=== PATIENT | female | born 1940 | race Caucasian/White ===

== ENCOUNTER 2022-06-12 13:36 | Outpatient (CLI) | payer MEDICARE, OTHER, SELFPAY ==
--- NOTE | 2022-06-12 13:43 | XR_ITS ---
WS: [id number] SCREENING DEXA SCAN [employer] CLINICAL INFORMATION: AGE RELATED OSTEOPOROSIS W/O CURRENT PATHOLOGICAL FX COMPARISON: FINDINGS: The L1-L4 bone mineral density measures 0.943 g/cm2. This corresponds to a T score score of -2.0 and Z score of -0.3. Left femoral neck bone mineral density measures 0.904 g/cm2. This corresponds to a T score of -0.8 an d Z score of 1.1. Right femoral neck bone mineral density measures 0.855 g/cm2. This corresponds to a T score -1.2of an d Z score of 0.7. Mean femoral neck bone mineral density measures 0.880 g/cm2. This corresponds to a T score of -1.0 an d Z score of 0.9. XR/XR DEXA axial skeleton* [id number] IMPRESSION: Osteopenia lumbar spine. Osteopenia femoral necks at the lower end of the range . Patient's FRAX calculated 10 year probability for major osteoporotic fracture i s 16.2 % and osteoporotic hip fracture is 3.9%.
== END 2022-06-12 13:37 | disposition home or self-care (01) ==
LOC: RAD 13:41
PROVIDERS: Visit Provider Nurse Practitioner Family
DX: M81.0 Age-related osteoporosis without current pathological fracture (principal); M85.80 Other specified disorders of bone density and structure, unspecified site
CPT/HCPCS: 77080

== ENCOUNTER 2023-04-06 10:03 | Outpatient (CLI) | payer MEDICARE, OTHER, SELFPAY ==
--- NOTE | 2023-04-06 10:13 | USCV_ITS ---
Becky Knight Age: 83 Gender: F : 1940 Exam Date: 04/06/2023 10:28 Ordering Phys: Natasha Reyez NP Technologist: Sharron Garner Exam Location: [facility] [place] Indication: tia and essential htn BP: 160 / 80 HR: 88 Rhythm: Sinus Technical Quality: Adequate MEASUREMENTS (Male / Female) Normal Values 2D ECHO LV Diastolic Diameter PLAX 2.7 cm 4.2 - 5.9 / 3.9 - 5.3 cm LV Systolic Diameter PLAX 1.6 cm LV Chamber Size 3.6 cm IVS Diastolic Thickness 0.7 cm 0.6 - 1.0 / 0.6 - 0.9 cm IVS Systolic Thickness 0.8 cm LVPW Diastolic Thickness 1.1 cm 0.6 - 1.0 / 0.6 - 0.9 cm LVPW Systolic Thickness 1.0 cm RV Chamber Size 2.1 cm LVOT Diameter 2.0 cm LV Ejection Fraction 2D Teich 72.1 % LV Ejection Fraction MOD 2C 72.7 % LV Ejection Fraction 2C AL 73.1 % LA Diameter 2.6 cm LA Width 2.9 cm LA Height 4.5 cm RA Width 2.7 cm RA Height 3.8 cm Aorta at Sinotubular Diameter 1.9 cm IVC Diameter 2.1 cm M-MODE Aortic Annulus Diameter 3.2 cm LA Ao Ratio MM 0.9 MV E Point Septal Separation 1.2 cm DOPPLER AV Peak Velocity 81.0 cm/s LVOT Peak Velocity 87.0 cm/s AV Area Cont Eq vti 3.2 cm squared AV Area Cont Eq pk 3.5 cm squared MV Area PHT 4.2 cm squared Mitral E to A Ratio 0.7 MV E' Velocity 33.5 cm/s Mitral E to MV E' Ratio 14.0 Mitral E to LV E' Lateral Ratio 14.3 Mitral E to LV E' Septal Ratio 14.0 TR Peak Velocity 189.9 cm/s TR Peak Gradient 14.4 mmHg TR Mean Velocity 128.1 cm/s TR Mean Gradient 7.6 mmHg TR Velocity Time Integral 43.3 cm TV Peak E Velocity 48.0 cm/s Right Atrial Pressure 4.0 mmHg Pulmonary Artery Systolic Pressu 18.4 mmHg RV Acceleration Time 0.1 s RV Ejection Time 0.3 s RV AcT/ET 0.4 FINDINGS Left Ventricle Normal left ventricular size and systolic function, EF 66 %. Hypokinetic basal inferior wall segment. Mild left ventricular hypertrophy. Grade I/IV diastolic dysfunction (abnormal relaxation filling pattern), normal to mildly elevated filling pressures. Right Ventricle The right ventricle is normal in size and function. Right Atrium The right atrium is normal in size. Left Atrium Mildly increased left atrial size. Mitral Valve No gross abnormalities noted Aortic Valve Thickened aortic valve. Tricuspid Valve Trace tricuspid valve regurgitation. Estimated PA pressure, possibly within normal limits Pulmonic Valve Pulmonic valve not well visualized. Pericardium Normal pericardium without effusion. Aorta Normal ascending aorta dimension. IVC Normal inferior vena cava. CONCLUSIONS Normal left ventricular size and systolic function, EF 66 %. Hypokinetic basal inferior wall segment. Mild left ventricular hypertrophy. Grade I/IV diastolic dysfunction (abnormal relaxation filling pattern), normal to mildly elevated filling pressures. Thickened aortic valve. Mildly increased left atrial size. Estimated PA pressure, possibly within normal limits. No similar previous studies are available for comparison Dr Eveline Parmar MD [facility] (Electronically Signed) Final Date: 08 April 2023 09:31 S
--- NOTE | 2023-04-06 10:13 | USCV_ITS ---
Becky Knight Age: 83 Gender: F : 1940 Exam Date: 04/06/2023 10:54 Ordering Phys: Natasha Reyez NP Technologist: Sharron Garner [place] Location[place] [facility] [place] Indication: Recheck the cca for stenosis Risk Factors: Unknown Previous Vascular Surgery: None Right Brachial BP: / Left Brachial BP: / Right Left Velocity (cm/s) Spectral Plaque Velocity (cm/s) Spectral Plaque Syst/Diast Broadening Syst/Diast Broadening 70.60/ 16.50 Prox CCA 65.90 / 17.20 48.50/ 18.70 Mid CCA 62.80 / 16.50 62.10/ 13.20 Hetro Distal CCA 45.10 / 10.10 Hetro 93.30/ 17.10 Hetro Prox ICA 82.30 / 14.00 Hetro 59.10/ 15.50 Mid ICA 80.00 / 21.00 68.30/ 15.50 Distal ICA 50.00 / 17.90 127.50 ECA 45.10 1.92 ICA/CCA 1.31 Antegrade Vertebral Antegrade 36.30/ 11.20 cm/s 49.80/ 11.20 cm/s Bi Subclavian Tri 74.00 88.90 FINDINGS Mild to moderate dense plaques at the right bifurcation and proximal ICA. Moderate dense plaques at the left bifurcation and proximal ICA. Antegrade flow in the vertebral arteries bilaterally Normal Doppler flow velocities in the external carotid, subclavian and vertebral arteries bilaterally CONCLUSIONS Mild to moderate dense plaques at the right bifurcation and proximal ICA with a normal Doppler flow velocity, suggesting less than 50% stenosis. Moderate dense plaques at the left bifurcation and proximal ICA with a normal Doppler flow velocity, suggesting less than 50% stenosis Dr Eveline Parmar MD [facility] (Electronically Signed) Final Date: 08 April 2023 09:42 S
== END 2023-04-06 10:04 | disposition home or self-care (01) ==
PROVIDERS: Visit Provider Nurse Practitioner Family
DX: I25.10 Atherosclerotic heart disease of native coronary artery without angina pectoris (principal); I10 Essential (primary) hypertension; Z86.73 Personal history of transient ischemic attack (TIA), and cerebral infarction without residual deficits
CPT/HCPCS: 93306; 93880

== ENCOUNTER 2024-03-19 16:29 | Observation (INO) | payer MEDICARE, OTHER, SELFPAY ==
[2024-03-19] VITALS (18 sets, daily range): BP systolic 121–157; BP diastolic 68–101; PULSE 99–109; RESP 13–25; TEMP 36.4; O2SAT 89–100; BMI 28.3; BMI 25.3
--- NOTE | 2024-03-19 16:45 | ECG_ITS ---
[facility]19 Pat Name: Becky Knight Department: Room: Gender: Female [employer] T[employer]: : 1940 Requested By: Shannan Sim Order Number: [id number] Reading MD: CELIO ZENG Measurements Intervals [place] Rate: 101 P: 53 SD: 182 QRS: 33 QRSD: 88 T: 57 QT: 350 QTc: 454 Interpretive Statements SINUS TACHYCARDIA ABNORMAL RHYTHM ECG Compared to ECG 05/05/2019 16:54:08 Ventricular premature complex(es) no longer present Electronically Signed On 03-21-2024 21:02:16 CDT by CELIO ZENG [id number]
--- NOTE | 2024-03-19 16:52 | CTR_ITS ---
PROCEDURE INFORMATION: Exam: CT Cervical Spine Without Contrast Exam date and time: 03/19/2024 5:03 PM Age: 84 years old Clinical indication: Injury or trauma; Fall; Blunt trauma TECHNIQUE: Imaging protocol: Computed tomography of the cervical spine without contrast. Radiation optimization: All CT scans at this facility use at least one of these dose optimization techniques: automated exposure control; mA and/or kV adjustment per patient size (includes targeted exams where dose is matched to clinical indication); or iterative reconstruction. COMPARISON: CT head wo con* [id number] 03/19/2024 5:03 PM RADIATION DOSE METRICS: Total DLP (mGy-cm): 993.1 FINDINGS: Bones: Normal craniocervical and atlantoaxial alignment. The odontoid process is intact. There is no evidence of increased density within the spinal canal to suggest hemorrhage. There is straightening and mild reversal of the normal cervical lordosis without evidence of vertebral body listhesis or facet malalignment. This is likely positional, related to muscle spasm or underlying degenerative change. Scattered degenerative changes the vertebral bodies from C5 through C7 with disc space narrowing. There is also degenerative change involving the facets from C2 through C5. No cervical spinal fracture is seen. No aggressive osseous lesion. Mastoid air cells: Visualized mastoid air cells are clear. Prevertebral and retropharyngeal spaces: The prevertebral soft tissues are normal in thickness. Lungs: Visualized lung apices are clear. Vasculature: There is atherosclerotic calcification in the carotid bulbs. Soft tissues: The visualized superficial soft tissues have a normal appearance. CT/CT cervical spin wo con* [id number] IMPRESSION: 1. No evidence of a cervical spinal fracture or traumatic malalignment. 2. There is straightening and mild reversal of the normal cervical lordosis without evidence of vertebral body listhesis or facet malalignment. This is likely positional, related to muscle spasm or underlying degenerative change. 3. Scattered spondylosis.
--- NOTE | 2024-03-19 16:52 | XRR_ITS ---
PROCEDURE INFORMATION: Exam: XR Chest Exam date and time: 03/19/2024 5:04 PM Age: 84 years old Clinical indication: Chest pressure; Patient HX: Lt shoulder pain post fall; Painful inspiration TECHNIQUE: Imaging protocol: Radiologic exam of the chest. Views: 1 view. COMPARISON: CR XR chest 1V [id number] 05/05/2019 3:10 PM FINDINGS: Lungs: No focal consolidation. Pleural spaces: No evidence of pneumothorax. No evidence of pleural effusion. Heart/Mediastinum: Cardiomediastinal silhouette is within normal limits. Bones/joints: No evidence of acute osseous abnormality. 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 XR/XR chest 1V portable [id number] IMPRESSION: 1. No acute cardiopulmonary abnormality.
--- NOTE | 2024-03-19 16:52 | XRR_ITS ---
PROCEDURE INFORMATION: Exam: XR Left Shoulder Exam date and time: 03/19/2024 5:04 PM Age: 84 years old Clinical indication: Left; Patient HX: Lt shoulder pain post fall TECHNIQUE: Imaging protocol: Radiologic exam of the left shoulder. Views: 2 or more views. COMPARISON: CR (CHEST, ) 03/19/2024 5:04 PM FINDINGS: Bones/joints: Severe glenohumeral osteoarthritis. The acromioclavicular articulation is grossly intact with moderate osteoarthritis. Soft tissues: No gross soft tissue abnormality. XR/XR shoulder LT min 2V* [id number] IMPRESSION: 1. 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 If there is strong clinical suspicion for traumatic injury, consider correlation with CT.
--- NOTE | 2024-03-19 16:52 | CTR_ITS ---
PROCEDURE INFORMATION: Exam: CT Head Without Contrast Exam date and time: 03/19/2024 5:03 PM Age: 84 years old Clinical indication: Injury or trauma; Fall; Blunt trauma (contusions or hematomas); Consciousness not specified TECHNIQUE: Imaging protocol: Computed tomography of the head without contrast. Radiation optimization: All CT scans at this facility use at least one of these dose optimization techniques: automated exposure control; mA and/or kV adjustment per patient size (includes targeted exams where dose is matched to clinical indication); or iterative reconstruction. COMPARISON: CT head wo con* [id number] 10/13/2017 9:14 AM RADIATION DOSE METRICS: Total DLP (mGy-cm): 1163.6 FINDINGS: Brain: There is patchy hypoattenuation in the periventricular white matter. While nonspecific, this is favored to represent chronic small vessel ischemic change. There is cerebral volume loss with associated mild prominence of the CSF spaces. No midline shift. No sulcal effacement.Normal gill-white matter differentiation. Cerebral ventricles: The ventricles appear enlarged, in proportion to the parenchymal volume loss. Paranasal sinuses: Minimal secretions in the sphenoid sinuses. Paranasal sinuses otherwise appear clear. Mastoid air cells: Visualized mastoid air cells are clear. Auditory system: Minimal debris in the external auditory canals. Bones: Osseous calvarium appears intact. No fracture is seen. Soft tissues: The visualized superficial soft tissues have a normal appearance. Vasculature: There is calcific atherosclerosis within the cavernous carotids. There is atherosclerotic calcification within the vertebral arteries at the skull base. CT/CT head wo con* [id number] IMPRESS[address]: 1. No CT evidence of acute intracranial pathology. 2. Chronic senescent changes as above.
--- NOTE | 2024-03-19 16:58 | ED_ITS ---
<Statement entered by Aleksander Avelar MD - 03/19/24 20:12> The head CT was read by the radiologist. There is severe parenchymal volume loss but nothing acute. Cervical spine CT was read by the radiologist as degenerative changes but nothing acute. No fractures. Chest x-ray was read by the radiologist as normal. X-ray of the left shoulder was read by the radiologist as severe osteoarthritis, no fracture. I had a discussion with the patient and family. Patient is here with her son and [id number]. They are from [place]. They state they took the patient down to [place] with them so that they could hire someone to clean the patient's house. Evidently she had 7000 pounds of food in the house that had to be removed. The patient's is currently in a prison. This patient has dementia and family states she is unable to care for herself. They would like her admitted with help from marriage and family social worker to get placement for her. They state they are going to be here this week but then heading back to [place]. I discussed this case with Dr. Baugh, hospitalist. He did accept the patient for observation and marriage and family social worker consult. HPI - Fall 2 General: Chief Complaint: Fall Stated Complaint: passed out and hit floor Time Seen by Provider: 03/19/24 16:45 Source: patient Mode of arrival: ambulatory Limitations: no limitations History of Present Illness: 84-year-old female who family states has been having some diarrhea lately states she went to the bathroom this evening had an episode of diarrhea stood up and passed out. She did hit her shoulder she is unsure if she hit her head. She unsure how long she passed out for. Patient denies any pain currently family states she has had some increased confusion lately as well. Associated symptoms-after fall: Denies abdominal pain, chest pain, headache(s) or neck pain Related Data Allergies Allergy/AdvReac Type Severity Reaction Status Date / Time No Known Allergies Allergy Verified 03/19/24 16:39 Review of Systems 2 Const: Denies: fever(s), chills, body aches or change in appetite ENMT: Denies: throat pain or dental pain Card: Reports: syncope; Denies: chest pain Resp: Denies: dyspnea GI: Denies: abdominal pain, nausea, vomiting or diarrhea : Denies: dysuria Musc: Reports: extremity pain; Denies: neck pain or back pain Skin/Breast: Denies: rash Neuro: Denies: headache(s) Physical Exam 2 Const: COMMON NORMALS: no acute distress, patient oriented x3 and healthy appearing HENMT: COMMON NORMALS: normocephalic and atraumatic HEAD & SCALP: n ormocephalic and atraumatic Eye: COMMON NORMALS: conjunctivae normal CONJUNCTIVA: Yes conjunctivae normal Neck/C-Spine: COMMON NORMALS: full ROM and supple Chest: COMMONS NORMALS: normal inspection of the chest Resp: COMMON NORMALS: normal respiratory effort, No retractions, No use of accessory muscles and clear to auscultation bilaterally AUSCULTATION: clear to auscultation bilaterally Cardio: COMMON NORMALS: regular rhythm and No murmurs present (Cardio) R ATE: tachycardic RHYTHM: regular rhythm GI: COMMON NORMALS: Normal to inspection, nondistended, normoactive bowel sounds present, Soft to palpation, non-tender and no masses PALPATION: Yes Soft to palpation Extremity: COMMON NORMALS: full ROM NARRATIVE EXTREMITY EXAM: Abrasion noted to left shoulder Neuro: COMMON NORMALS: patient oriented x3, moves all extremities and no focal motor deficits Psych: COMMON NORMALS: mental status grossly normal, Normal thought process present and cooperative THOUGHT PROCESS: Normal thought process present Skin: COMMON NORMALS: no rashes or lesions noted and no wounds GENERAL SKIN EXAM: no rashes or lesions noted Course 2 Vital Signs: Vital signs: Vital Signs Temperature 97.5 F L 03/19/24 16:32 Pulse Rate 109 H 03/19/24 16:32 Blood Pressure 121/68 03/19/24 16:32 Pulse Oximetry 99 03/19/24 16:32 Oxygen Delivery Me thod Room Air 03/19/24 16:32 MDM - Fall Medical Decision Making Patient presents here with diarrhea along with a syncopal event. Patient is pending imaging results care turned over to Dr. Avelar. Medical Records I reviewed the patient's medical records. Lab Data I reviewed the patient's lab results. 03/19/24 17:00 03/19/24 17:00 Laboratory Results WBC 12.03 10^3/uL (3.29-11.43) H 03/19/24 17:00 RBC 4.57 10^6/uL (3.85-5.65) 03/19/24 17:00 Hgb 13.80 g/dL (11.27-16.99) 03/19/24 17:00 Hct 41.4 % (36-47) 03/19/24 17:00 MCV 90.6 fl (85-98) 03/19/24 17:00 MCH 30.2 pg (27-33) 03/19/24 17:00 MCHC 33.3 g/dL (30-55) 03/19/24 17:00 RDW 12.2 % (12.1-15.1) 03/19/24 17:00 Plt Count 194 10^3/cmm (157-399) 03/19/24 17:00 MPV 9.7 fL (7.4-10.4) 03/19/24 17:00 Neut % (Auto) 86.2 % 03/19/24 17:00 Lymph % (Auto) 5.4 % 03/19/24 17:00 [place] % (Auto) 7.5 % 03/19/24 17:00 Eos % (Auto) 0.2 % 03/19/24 17:00 Baso % (Auto) 0.3 % 03/19/24 17:00 Neut # (Auto) 10.37 10^3/uL (1.8-7.7) H 03/19/24 17:00 Lymph # (Auto) 0.7 10^3/uL (0.8-4.8) L 03/19/24 17:00 [place] # (Auto) 0.9 10^3/uL (0.2-0.9) 03/19/24 17:00 Eos # (Auto) 0.0 10^3/uL (0.0-0.8) 03/19/24 17:00 Baso # (Auto) 0.0 10^3/uL (0.0-0.1) 03/19/24 17:00 Nucleated RBC % (auto) 0 % 03/19/24 17:00 Nucleated RBCs # 0.0 /100WBC 03/19/24 17:00 Sodium 141 mmol/L (136-145) 03/19/24 17:00 Potassium 4.2 mmol/L (3.5-5.1) 03/19/24 17:00 Chloride 104 mmol/L (98-107) 03/19/24 17:00 Carbon Dioxide 25 mmol/L (22-29) 03/19/24 17:00 Anion Gap 16.2 (5-19) 03/19/24 17:00 BUN 27 mg/dL (8-23) H 03/19/24 17:00 Creatinine 1.2 mg/dL (0.5-0.9) H 03/19/24 17:00 GFR Calculation Not Reportable 03/19/24 17:00 Glucose 145 mg/dL (65-115) H 03/19/24 17:00 Calculated Osmolality 300 mOsm/kg (285-295) H 03/19/24 17:00 Calcium 9.4 mg/dL (8.5-10.5) 03/19/24 17:00 Total Bilirubin 0.6 mg/dL (0.15-1.2) 03/19/24 17:00 AST 26 U/L (0-32) 03/19/24 17:00 ALT 14 U/L (0-33) 03/19/24 17:00 Alkaline Phosphatase 94 U/L (35-105) 03/19/24 17:00 Total Protein 6.9 g/dL (6.6-8.7) 03/19/24 17:00 Albumin 4.5 g/dL (3.5-5.2) 03/19/24 17:00 Globulin 2.4 g/dL (1.3-4.6) 03/19/24 17:00 All radiology interpretation(s) finalized by discharge EKG Data EKG 1: I personally reviewed and interpreted this EKG as follows: EKG interpretation date: 03/19/24 EKG interpretation time: 16:46 Interpretation: sinus tach hr [address] or t wave abnormalities qrs 88 qtc 408 Discharge Plan Discharge Condition: Stable Coding Level of Care Code ED Healthcare Technician for Chg Jose Maria
[2024-03-19 17:08] LABS: Basophils % 0.3 %; Eosinophils % 0.2 %; Hematocrit 41.4 % (36-47); Lymphocytes # 0.7 10^3/uL (0.8-4.8); Lymphocytes % 5.4 %; Mean Corpuscular HGB Conc 33.3 g/dL (30-55); Mean Corpuscular Hemoglobin 30.2 pg (27-33); Mean Corpuscular Volume 90.6 fl (85-98); Mean Platelet Volume 9.7 fL (7.4-10.4); Monocytes # 0.9 10^3/uL (0.2-0.9); Monocytes % 7.5 %; Neutrophils # 10.37 10^3/uL (1.8-7.7); Neutrophils % 86.2 %; Nucleated Red Blood Cells % 0 %; Platelet Count 194 10^3/cmm (157-399); Red Blood Count 4.57 10^6/uL (3.85-5.65); Red Cell Distribution Width 12.2 % (12.1-15.1); White Blood Count 12.03 10^3/uL (3.29-11.43)
[2024-03-19 17:27] LABS: Alanine Aminotransferase 14 U/L (0-33); Albumin Level 4.5 g/dL (3.5-5.2); Alkaline Phosphatase 94 U/L (35-105); Aspartate Amino Transferase 26 U/L (0-32); Blood Urea Nitrogen 27 mg/dL (8-23); Calcium 9.4 mg/dL (8.5-10.5); Carbon Dioxide 25 mmol/L (22-29); Chloride 104 mmol/L (98-107); Creatinine Clr Calc Pharmacy 34.5043; Globulin 2.4 g/dL (1.3-4.6); Glucose 145 mg/dL (65-115); Osmolality Calculated 300 mOsm/kg (285-295); Sodium 141 mmol/L (136-145); Total Bilirubin 0.6 mg/dL (0.15-1.2); Total Protein 6.9 g/dL (6.6-8.7)
[2024-03-19] MEDS: sodium chloride 0.9% 1,000 ML 999 ML IV (17:28)
[2024-03-19 17:32] LABS: Anion Gap 16.2 (5-19); Potassium 4.2 mmol/L (3.5-5.1)
--- NOTE | 2024-03-19 22:30 | PM.HP ---
Providers/Chief Complaint Admitting Physician: Jovani Devine MD Chief Complaint: passed out and hit floor History of Present Illness Becky Knight is a 84 year old female with a past medical history of hypertension , possible dementia was brought to the hospital by her family today due to chief complaints of fall at home. Patient states that she was in her usual state of health, went into the bathroom this evening and then fell to the floor. She does not recall the events exactly but does not remember this to be a mechanical fall. She states that she had felt generally unwell as if she had a viral infection. Denies any fever. States that she possibly passed out. Her family found her in the bathroom when they heard the fall, she does not know if she was unconscious afterwards. No history of incontinence. No history of seizures. Denies any chest pain or palpitations right prior. Per history obtained by ER physician, her family members had recently taken the patient to [place] so that they could hire someone to clean out the patient's house in her absence. Evidently she had a large amount of rotten food that needed to be removed from the house. The patient currently lives alone and family stated she has dementia and they feel unsafe in her living alone at home alone. Review of Systems General: Reports: 10 or more systems reviewed and unremarkable except in HPI and below Const: Denies: fever(s), chills or body aches Eyes: Denies: change in vision, blurry vision or photophobia ENMT: Reports: hoarseness; Denies: throat pain, enlarged tonsils, odynophagia or nasal congestion Card: Denies: chest pain, palpitations, irregular heart rhythm, edema, swelling of feet/ankles, lightheadedness, pre-syncope, dyspnea on exertion or orthopnea Resp: Denies: dyspnea, productive cough, non-productive cough, wheezing, stridor, pain on inspiration, change in phlegm color, hemoptysis or chest congestion GI: Denies: abdominal pain, nausea, vomiting, hematemesis, coffee ground emesis, dysphagia, heartburn, diarrhea, constipation, GI cramping, change in stool character, hematochezia or melena : Denies: flank pain, difficulty voiding, dysuria, urinary frequency, urinary urgency, urinary hesitancy or hematuria Musc: Denies: neck pain, back pain, extremity pain, joint swelling, joint warmth or deformity Neuro: Denies: headache(s), numbness in extremities, weakness in extremities, sensory changes, difficulty walking, frequent falls, dizziness, vertigo, behavioral changes, Slurred speech present or seizure-like activity Psych: Denies: anxiety, depression, suicidal ideation or homicidal ideation Endo: Denies: polyuria, polydipsia, tired all the time, cold intolerance or hot flashes Mane/Lymph: Denies: easy bruising or easy bleeding Medications/Allergies Home Medications Medication Instructions Recorded Confirmed Last Taken Type hydrochlorothiazide 50 mg tablet 50 mg PO DAILY 03/19/24 03/19/24 Unknown History lisinopril 20 mg tablet 20 mg PO DAILY 03/19/24 03/19/24 Unknown History lovastatin 20 mg tablet 20 mg PO DAILY 03/19/24 03/19/24 Unknown History potassium chloride 10 mEq 10 meq PO DAILY 03/19/24 03/19/24 Unknown History tablet,extended release Allergies Allergy/AdvReac Type Severity Reaction Status Date / Time No Known Allergies Allergy Verified 03/19/24 16:39 Vitals/I&O/Wt Last Vital Signs Temp 98.4 F 03/20/24 04:00 Pulse 81 03/20/24 04:00 Resp 20 H 03/20/24 04:00 BP 166/69 03/20/24 04:00 Pulse Ox 97 03/20/24 04:00 O2 Del Method Room Air 03/20/24 04:00 03/19/24 03/19/24 03/20/24 14:59 22:59 06:59 Intake Total 1000 / 1000 Balance 1000 / 1000 Weight last 48 hrs Weight 66.179 kg Weight 64.864 kg Weight 72.575 kg Physical Exam Narrative: General: No acute distress, AO x3 HEENT: PERRLA, pupils bilaterally equal and reactive, pallors not present Chest: Normal vesicular breath sounds, no added sounds, equal good air entry bilaterally CVS: S1-S2 regular, no murmurs, no tachycardia, no gallops, no rubs Abdomen: Soft, nontender, no organomegaly, bowel sounds present Neuro: No focal deficits, no facial deformity, AO x3, power 5/5 in all limbs Data 03/19/24 17:00 03/19/24 17:00 Other Labs: Radiology Impressions Cervical Spine CT 03/19/24 16:52 IMPRESSION: 1. No evidence of a cervical spinal fracture or traumatic malalignment. 2. There is straightening and mild reversal of the normal cervical lordosis without evidence of vertebral body listhesis or facet malalignment. This is likely positional, related to muscle spasm or underlying degenerative change. 3. Scattered spondylosis. Chest X-Ray 03/19/24 16:52 IMPRESSION: 1. No acute cardiopulmonary abnormality. Head CT 03/19/24 16:52 IMPRESSION: 1. No CT evidence of acute intracranial pathology. 2. Chronic senescent changes as above. Shoulder X-Ray 03/19/24 16:52 IMPRESSION: 1. 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 If there is strong clinical suspicion for traumatic injury, consider correlation with CT. Laboratory Results WBC 5.76 10^3/uL (3.29-11.43) 03/20/24 05:38 RBC 3.87 10^6/uL (3.85-5.65) 03/20/24 05:38 Hgb 11.70 g/dL (11.27-16.99) 03/20/24 05:38 Hct 35.1 % (36-47) L 03/20/24 05:38 MCV 90.7 fl (85-98) 03/20/24 05:38 MCH 30.2 pg (27-33) 03/20/24 05:38 MCHC 33.3 g/dL (30-55) 03/20/24 05:38 RDW 12.3 % (12.1-15.1) 03/20/24 05:38 Plt Count 163 10^3/cmm (157-399) 03/20/24 05:38 MPV 9.8 fL (7.4-10.4) 03/20/24 05:38 Neut % (Auto) 65.1 % 03/20/24 05:38 Lymph % (Auto) 24.0 % 03/20/24 05:38 [place] % (Auto) 9.2 % 03/20/24 05:38 Eos % (Auto) 1.2 % 03/20/24 05:38 Baso % (Auto) 0.3 % 03/20/24 05:38 Neut # (Auto) 3.75 10^3/uL (1.8-7.7) 03/20/24 05:38 Lymph # (Auto) 1.4 10^3/uL (0.8-4.8) 03/20/24 05:38 [place] # (Auto) 0.5 10^3/uL (0.2-0.9) 03/20/24 05:38 Eos # (Auto) 0.1 10^3/uL (0.0-0.8) 03/20/24 05:38 Baso # (Auto) 0.0 10^3/uL (0.0-0.1) 03/20/24 05:38 Nucleated RBC % (auto) 0 % 03/20/24 05:38 Nucleated RBCs # 0.0 /100WBC 03/20/24 05:38 Sodium 141 mmol/L (136-145) 03/19/24 17:00 Potassium 4.2 mmol/L (3.5-5.1) 03/19/24 17:00 Chloride 104 mmol/L (98-107) 03/19/24 17:00 Carbon Dioxide 25 mmol/L (22-29) 03/19/24 17:00 Anion Gap 16.2 (5-19) 03/19/24 17:00 BUN 27 mg/dL (8-23) H 03/19/24 17:00 Creatinine 1.2 mg/dL (0.5-0.9) H 03/19/24 17:00 GFR Calculation Not Reportable 03/19/24 17:00 Glucose 145 mg/dL (65-115) H 03/19/24 17:00 Calculated Osmolality 300 mOsm/kg (285-295) H 03/19/24 17:00 Calcium 9.4 mg/dL (8.5-10.5) 03/19/24 17:00 Iron 118 ug/dL (37-145) 03/19/24 17:00 TIBC 322 mcg/dl 03/19/24 17:00 % Saturation 36.6 % (20-50) 03/19/24 17:00 Unsat Iron Binding 204 ug/dL (112-347) 03/19/24 17:00 Total Bilirubin 0.6 mg/dL (0.15-1.2) 03/19/24 17:00 AST 26 U/L (0-32) 03/19/24 17:00 ALT 14 U/L (0-33) 03/19/24 17:00 Alkaline Phosphatase 94 U/L (35-105) 03/19/24 17:00 Total Protein 6.9 g/dL (6.6-8.7) 03/19/24 17:00 Albumin 4.5 g/dL (3.5-5.2) 03/19/24 17:00 Globulin 2.4 g/dL (1.3-4.6) 03/19/24 17:00 Vitamin B12 452 pg/mL (232-1245) 03/19/24 17:00 Procalcitonin 0.07 ng/mL (0-0.5) 03/19/24 17:00 TSH 3.66 uIU/mL (0.27-4.20) 03/19/24 17:00 Urine Color Yellow (Yellow) 03/20/24 02:48 Urine Appearance Clear (CLEAR) 03/20/24 02:48 Urine pH 5.5 (5-7) 03/20/24 02:48 Ur Specific [place] 1.014 (1.005-1.030) 03/20/24 02:48 Urine Protein Negative (Negative) 03/20/24 02:48 Urine Glucose (UA) Negative (Normal) 03/20/24 02:48 Urine Ketones Negative (Negative) 03/20/24 02:48 Urine Blood Negative (Negative) 03/20/24 02:48 Urine Nitrate Negative (Negative) 03/20/24 02:48 Urine Bilirubin Negative (Negative) 03/20/24 02:48 Urine Urobilinogen 1.0 mg/dL (Negative) 03/20/24 02:48 Ur Leukocyte Esterase Negative (Negative) 03/20/24 02:48 Urine RBC 0-2 /hpf (0-2) 03/20/24 02:48 Urine WBC 0-5 /hpf (0-5) 03/20/24 02:48 Ur Squamous Epith Cells 0-5 /hpf (0-5) 03/20/24 02:48 Amorphous Sediment Not Reportable 03/20/24 02:48 Urine Bacteria None seen /hpf (NONE) 03/20/24 02:48 Hyaline Casts 1.21 /lpf 03/20/24 02:48 A&P Assessment and plan (1) Syncope and collapse: 84-year-old lady presented to the hospital today with a episode of what appears to be syncope earlier today. Admit to [facility] in observation. Continuous telemetry monitoring to assess for underlying arrhythmias Check orthostatics CT of the head showing senescent changes without evidence of any acute stroke. Spinal CT with degenerative changes no fractures. Chest x-ray without any consolidation. UA unremarkable. Check carotid Doppler first carotid artery stenosis and echocardiogram to assess for any aortic stenosis. Reportedly by family patient has dementia, has been having increasing difficulty living by herself. She is not a known diabetic, blood sugar normal Will order a [place] assessment, physical therapy assessment to assess for safety with ambulating and other daily tasks. Continue home dose of antihypertensive including lisinopril 20 mg p.o. daily. Hydrochlorothiazide on her medication list needs to be verified. Continue lovastatin 20 mg p.o. daily DVT prophylaxis: Heparin 5000 units subcutaneously every 12 hours Full code Attestations Medical Necessity Statement*: Less than 2 midnight stay is currently anticipated for evaluation of syncope, appropriate disposition planning Coding Level of Care Code Acute Code for Chg Fwd Moderate MDM includes number and complexity of problems actively addressed during encounter, amount and/or complexity of data reviewed/ordered and described risk of complication, morbidity or mortality of management as documented Diagnoses Syncope and collapse R55
[2024-03-19] MEDS: sodium chloride 0.9% 1,000 ML 50 ML IV (23:22)
[2024-03-19] MEDS: heparin 5,000 unit/mL INJ 1 mL 5000 UNIT SUBCUT (23:23)
[2024-03-19 23:27] LABS: Procalcitonin 0.07 ng/mL (0-0.5); Thyroid Stimulating Hormone 3.66 uIU/mL (0.27-4.20)
--- NOTE | 2024-03-19 23:54 | PC.NURSE ---
Family brought to this nurse's attention that they would like to speak to case management tomorrow. They think that SNF placement is appropriate for their mother. She lives at home alone and her lives in a residential. She is having recurrent falls at home and has been living with family in [place] for 3 weeks because of her falls.
[2024-03-20] VITALS (8 sets, daily range): BP systolic 122–166; BP diastolic 69–89; PULSE 57–95; RESP 16–20; TEMP 36.7–36.9; O2SAT 95–100; BMI 25.8
[2024-03-20 02:33] LABS: Iron 118 ug/dL (37-145); Percent Saturation 36.6 % (20-50); Total Iron Binding Capacity 322 mcg/dl; Unsaturated Iron Binding 204 ug/dL (112-347)
[2024-03-20 02:48] LABS: Vitamin B12 452 pg/mL (232-1245)
[2024-03-20 03:07] LABS: Bilirubin Urine Negative (Negative); Blood Urine Negative (Negative); Glucose Urine UA Negative (Normal); Ketones Urine Negative (Negative); Leukocyte Esterase Urine Negative (Negative); Nitrate Urine Negative (Negative); Protein Urine Negative (Negative); Specific Gravity, Urine 1.014 (1.005-1.030); Urine Appearance Clear (CLEAR); Urine Color Yellow (Yellow); pH Urine 5.5 (5-7)
[2024-03-20 03:12] LABS: Add Urine Microscopic? YES; Bacteria Urine None Seen /hpf; Hyaline Casts Urine 1.21 /lpf; RBC Urine 0-2 /hpf (0-2); Squamous Epithelial Cell Urine 0-5 /hpf (0-5); WBC Urine 0-5 /hpf (0-5)
--- NOTE | 2024-03-20 06:09 | USCV_ITS ---
Becky Knight Age: 84 Gender: F : 1940 Exam Date: 03/20/2024 14:11 Ordering Phys: Ramona Horton MD Technologist: [place] [facility] [place]: cp BP: 132 / 74 HR: 80 Rhythm: Sinus Technical Quality: Adequate MEASUREMENTS (Male / Female) Normal Values 2D ECHO LV Diastolic Diameter PLAX 4.3 cm 4.2 - 5.9 / 3.9 - 5.3 cm IVS Diastolic Thickness 1.0 cm 0.6 - 1.0 / 0.6 - 0.9 cm IVS Systolic Thickness 1.1 cm LVPW Diastolic Thickness 1.1 cm 0.6 - 1.0 / 0.6 - 0.9 cm LVPW Systolic Thickness 1.2 cm LVOT Diameter 2.0 cm LV Ejection Fraction 2D Teich 64.7 % LV Ejection Fraction MOD 4C 64.2 % LV Ejection Fraction MOD 2C 75.0 % LV Ejection Fraction 2C AL 74.8 % LA Diameter 3.2 cm RA Systolic Volume 4C AL 24.2 ml RA Systolic Volume 4C MOD 23.7 ml Aorta at Sinotubular Diameter 3.0 cm IVC Diameter 1.9 cm M-MODE LA Ao Ratio MM 1.0 AV Cusp Separation MM 2.1 cm DOPPLER AV Peak Velocity 115.0 cm/s LVOT Peak Velocity 96.0 cm/s AV Area Cont Eq vti 2.8 cm squared AV Area Cont Eq pk 2.6 cm squared MV Peak Velocity 111.0 cm/s MV Area PHT 5.0 cm squared Mitral E to A Ratio 1.1 TV Peak Velocity 192.5 cm/s TR Peak Velocity 269.0 cm/s TR Peak Gradient 28.9 mmHg TV Peak E Velocity 260.0 cm/s Right Atrial Pressure 3.0 mmHg Pulmonary Artery Systolic Pressu 31.9 mmHg PV Peak Velocity 117.0 cm/s FINDINGS Left Ventricle Normal left ventricular size, systolic function and wall thickness, with no regional wall motion abnormalities. Left ventricular ejection fraction is estimated at 60 %. Grade I/IV diastolic dysfunction (abnormal relaxation filling pattern), normal to mildly elevated filling pressures. Right Ventricle The right ventricle is normal in size and function. Right Atrium The right atrium is normal in size. Left Atrium The left atrium is normal in size. Mitral Valve Mildly thickened mitral valve. Trace mitral valve regurgitation. No mitral valve stenosis. Aortic Valve Mild aortic valve calcification. No aortic valve stenosis. No aortic valve regurgitation. Tricuspid Valve Structurally normal tricuspid valve without significant stenosis or regurgitation. Pulmonary artery systolic pressure is normal. Pulmonic Valve Structurally normal pulmonic valve without significant stenosis. There is no pulmonic regurgitation. Pericardium Normal pericardium without effusion. Aorta Normal ascending aorta dimension. IVC The inferior vena cava appears normal. CONCLUSIONS Normal left ventricular size, systolic function and wall thickness, with no regional wall motion abnormalities. Left ventricular ejection fraction is estimated at 60 %. Grade I/IV diastolic dysfunction (abnormal relaxation filling pattern), normal to mildly elevated filling pressures. No significant valve abnormalities. There is no pericardial effusion. Pulmonary artery systolic pressure is within normal limits. Right atrial pressure is around 5 mm of mercury. Donna Hernandez MD (Electronically Signed) Final Date: 20 March 2024 20:37 S
--- NOTE | 2024-03-20 06:09 | USCV_ITS ---
Becky Knight Age: 84 Gender: F : 1940 Exam Date: 03/20/2024 12:41 Ordering Phys: Ramona Horton MD Technologist: [facility] [place] [facility] [place]: Syncope Risk Factors: Previous Vascular Surgery: Right Brachial BP: / Left Brachial BP: / Right Left Velocity (cm/s) Spectral Plaque Velocity (cm/s) Spectral Plaque Syst/Diast Broadening Syst/Diast Broadening 81.10/ 17.70 Prox CCA 76.10 / 14.60 74.80/ 18.60 Mid CCA 84.40 / 18.20 89.90/ 23.00 Distal CCA 66.40 / 16.00 90.30/ 16.80 Prox ICA 78.30 / 7.20 88.40/ 20.50 Mid ICA 65.30 / 16.80 69.50/ 22.40 Distal ICA 94.40 / 21.70 144.90 ECA 83.70 1.00 ICA/CCA 1.40 Antegrade Vertebral Antegrade 81.90/ 21.90 cm/s 49.10/ 8.40 cm/s Bi Subclavian Tri 98.40 94.10 FINDINGS Comparison:. 04/06/23 Diffuse bilateral scattered calcified plaque and intimal thickening throughout the common carotid arteries and extending through the bifurcation. Velocities are not significantly elevated. Arteries are tortuos. CONCLUSIONS Bilateral ICA stenosis less than 50%. Diffuse plaque with surface irregularity. No high grade stenosis. Dr. Sarahi Swann DO (Electronically Signed) Final Date: 20 March 2024 14:52 S
[2024-03-20 06:14] LABS: Basophils % 0.3 %; Eosinophils # 0.1 10^3/uL (0.0-0.8); Eosinophils % 1.2 %; Hematocrit 35.1 % (36-47); Lymphocytes # 1.4 10^3/uL (0.8-4.8); Mean Corpuscular HGB Conc 33.3 g/dL (30-55); Mean Corpuscular Hemoglobin 30.2 pg (27-33); Mean Corpuscular Volume 90.7 fl (85-98); Mean Platelet Volume 9.8 fL (7.4-10.4); Monocytes # 0.5 10^3/uL (0.2-0.9); Monocytes % 9.2 %; Neutrophils # 3.75 10^3/uL (1.8-7.7); Neutrophils % 65.1 %; Nucleated Red Blood Cells % 0 %; Platelet Count 163 10^3/cmm (157-399); Red Blood Count 3.87 10^6/uL (3.85-5.65); Red Cell Distribution Width 12.3 % (12.1-15.1); White Blood Count 5.76 10^3/uL (3.29-11.43)
[2024-03-20 06:46] LABS: Alanine Aminotransferase 12 U/L (0-33); Albumin Level 3.8 g/dL (3.5-5.2); Alkaline Phosphatase 75 U/L (35-105); Anion Gap 13.7 (5-19); Aspartate Amino Transferase 22 U/L (0-32); Blood Urea Nitrogen 19 mg/dL (8-23); Calcium 8.7 mg/dL (8.5-10.5); Carbon Dioxide 25 mmol/L (22-29); Chloride 109 mmol/L (98-107); Creatinine Clr Calc Pharmacy 49.5667; Estmated Average Glucose 103; Glucose 102 mg/dL (65-115); Hemoglobin A1C 5.2 % (4.0-6.0); Magnesium 2.1 mg/dL (1.7-2.3); Osmolality Calculated 300 mOsm/kg (285-295); Phosphorus 3.7 mg/dL (2.5-4.5); Potassium 3.7 mmol/L (3.5-5.1); Sodium 144 mmol/L (136-145); Total Bilirubin 0.6 mg/dL (0.15-1.2); Total Protein 5.8 g/dL (6.6-8.7)
[2024-03-20 06:47] LABS: Chol HDL Ratio 4.11 mg/dL (0.0-4.40); Cholesterol 218 mg/dL (0-200); HDL Cholesterol 53 mg/dL (60-100); LDL Cholesterol Calculated 146 mg/dL (50-129); LDL HDL Ratio 2.75 RATIO (0.00-3.22); Triglycerides 93 mg/dL (0-150)
[2024-03-20 06:54] LABS: Procalcitonin 0.08 ng/mL (0-0.5)
[2024-03-20 06:57] LABS: Folate Level 11.9 ng/mL (4.8-37.3)
[2024-03-20] MEDS: atorvastatin 40 mg Tablet 20 MG PO (08:51)
[2024-03-20] MEDS: lisinopril 20 mg Tablet PO (08:51)
[2024-03-20] MEDS: famotidine 20 mg Tablet PO ×2 (08:51→17:53)
--- NOTE | 2024-03-20 10:52 | PC.CHAP ---
Pastoral Care Encounter/Spiritual Assessment Type of Contact [] Declined banding machine operator visit [] Patient/Family/Request visit [] Outpatient visit [] Follow-up visit [] Physician referral [] Code/Alert [x] Routine visit [] Staff referral [] Actively dying [] Patient sleeping [] Family support [] [] Out of room [] Palliative care [] [] Receiving care in room [] Pre-surgical visit [] Trauma [] Long length of stay [] ICU visit [] Other: Relational/Emotional Strength [] Patient feels connected with others/family/visitors/staff [] Distress [] Loneliness/isolation [] Abandonment Spirituality of Patient [x] Person of [place] [] Attends Yarsani of their [place] [x] Believes in Prayer [] Reads Bible or Mu-Ism materials [] There are Spiritual issues to be addressed Bar Hostess Interventions [x] Prayer [x] Active listening [] Non-anxious presence [] Spiritual/emotional support [] Crisis/trauma care [] Spiritual counseling [] Bereavement support [] Provided bereavement packet [x] Provided Bible/devotional materials [] Provided toy/stuffed animal, coloring book to patient or family member [] Provided Communion [] Anointing/[place] [] Salvation [x] Completed spiritual assessment [] Other: Impact on Illness or Injury [] Angry [] Fearful [] Anxious [] Often cries [] Exhaustion [] Unable to work [] Unable to attend episcopal [] Unable to walk/stand [] Unable to read [] Unable to drive [] Unable to eat/drink [] Unable to sleep [] Unable to be with family [] Patient intubated [] Other: Summary Time spent with patient 5 min
[2024-03-20] MEDS: heparin 5,000 unit/mL INJ 1 mL 5000 UNIT SUBCUT ×2 (11:49→22:30)
--- NOTE | 2024-03-20 14:23 | P.PN_ITS ---
Subjective 2 Subjective: She reports she is doing okay. Denies pain or discomfort. No chest pain or pressure. No trouble breathing. No dizziness. Vitals/I&O/Wt Last Vital Signs Temp 98.0 F 03/20/24 12:00 Pulse 82 03/20/24 12:00 Resp 18 03/20/24 12:00 BP 159/81 03/20/24 12:00 Pulse Ox 100 03/20/24 12:00 O2 Del Method Room Air 03/20/24 12:00 03/19/24 03/20/24 03/20/24 22:59 06:59 14:59 Intake Total 1000 / 1000 240 / 240 Balance 1000 / 1000 240 / 240 Weight last 48 hrs Weight 66.179 kg Weight 66.179 kg Weight 64.864 kg Weight 72.575 kg Physical Exam 2 Narrative: Accompanied by Son at and [id number]. Const: COMMON NORMALS: patient oriented x3 and alert GENERAL APPEARANCE: c ooperative ORIENTATION/CONSCIOUSNESS: Yes awake HENMT: COMMON NORMALS: oropharynx normal Neck/C-Spine: COMMON NORMALS: no JVD Resp: COMMON NORMALS: normal respiratory effort and clear to auscultation bilaterally AUSCULTATION: clear to auscultation bilaterally Cardio: COMMON NORMALS: no JVD, regular rhythm, S1 normal heart sound present, S2 normal heart sound present and No murmurs present (Cardio) RHYTHM: regular rhythm HEART SOUNDS: S1 normal heart sound present and S2 normal heart sound present GI: COMMON NORMALS: Normal to inspection, nondistended, normoactive bowel sounds present, Soft to palpation and non-tender PALPATION: Yes Soft to palpation Extremity: COMMON NORMALS: no joint enlargement GENERAL: Yes edema (Trace) Neuro: COMMON NORMALS: patient oriented x3 and moves all extremities S ENSORIUM/ORIENTATION: Yes alert Skin: COMMON NORMALS: no rashes or lesions noted GENERAL SKIN EXAM: no rashes or lesions noted Data 03/20/24 05:38 03/20/24 05:38 A&P Assessment and plan (1) Syncope and collapse: 84-year-old lady presented to the hospital today with a episode of what appears to be syncope earlier today. Requested and reviewed orthostatics, negative. No arrhythmias so far. Pending echocardiogram and carotid duplex. Reviewed vitals, CBC, CMP, TSH, UA. Discussed with family, discussed with registered nurse hh case manager, nursing. Arrangements for assisted living after discharge. Per discussion with family patient may have been taking either not enough for too much of blood pressure medication due to dementia, certainly may have contributed. She additionally had diarrhea which may have contributed to hypovolemia. Received IV hydration. Stop IV fluid. Reassess volume status. Monitor for risk of fluid overload. Diarrhea so far has subsided. CT of the head showing senescent changes without evidence of any acute stroke. Spinal CT with degenerative changes no fractures. Chest x-ray without any consolidation. UA unremarkable. Pending carotid Doppler first carotid artery stenosis and echocardiogram to assess for any aortic stenosis. Reportedly by family patient has dementia, has been having increasing difficulty living by herself. She is not a known diabetic, blood sugar normal Continue home dose of antihypertensive including lisinopril 20 mg p.o. daily. Hydrochlorothiazide on her medication list needs to be verified. Continue lovastatin 20 mg p.o. daily DVT prophylaxis: Heparin 5000 units subcutaneously every 12 hours Full code Attestations 2 Medical Necessity Statement*: Continue assessment underway for syncope and elderly lady with dementia, medical problems as above. and High MDM includes amount and/or complexity of data reviewed/ordered [ resulted lab(s)/test(s), ordered lab(s)/test(s), independent historian and other healthcare professional discussion] as documented Diagnoses Syncope and collapse R55
[2024-03-21 04:00] VITALS: BP 144/76; PULSE 86; RESP 18; TEMP 36.8; O2SAT 97
[2024-03-21 05:34] LABS: Basophils % 0.4 %; Eosinophils # 0.1 10^3/uL (0.0-0.8); Eosinophils % 1.9 %; Lymphocytes # 1.3 10^3/uL (0.8-4.8); Lymphocytes % 28.1 %; Mean Corpuscular HGB Conc 33.2 g/dL (30-55); Mean Corpuscular Hemoglobin 30.1 pg (27-33); Mean Corpuscular Volume 90.7 fl (85-98); Mean Platelet Volume 9.5 fL (7.4-10.4); Monocytes # 0.4 10^3/uL (0.2-0.9); Monocytes % 9.5 %; Neutrophils # 2.76 10^3/uL (1.8-7.7); Neutrophils % 59.9 %; Nucleated Red Blood Cells % 0 %; Platelet Count 138 10^3/cmm (157-399); Red Blood Count 3.75 10^6/uL (3.85-5.65); Red Cell Distribution Width 12.2 % (12.1-15.1); White Blood Count 4.62 10^3/uL (3.29-11.43)
[2024-03-21 05:54] LABS: Blood Urea Nitrogen 17 mg/dL (8-23); Calcium 8.8 mg/dL (8.5-10.5); Carbon Dioxide 25 mmol/L (22-29); Chloride 108 mmol/L (98-107); Creatinine Clr Calc Pharmacy 39.5416; Glucose 108 mg/dL (65-115); Osmolality Calculated 296 mOsm/kg (285-295); Sodium 142 mmol/L (136-145)
[2024-03-21 08:00] VITALS: BP 156/79; PULSE 100; RESP 17; TEMP 36.7; O2SAT 97
--- NOTE | 2024-03-21 08:51 | P.DS_ITS ---
Discharge Providers Date of Admission: 03/19/24 19:57 Date of Discharge: March 21, 2024 Attending Provider at Admission: Jovani Devine MD Attending Provider at Discharge: Giuliano Hernandez Diagnoses at Discharge Discharge Diagnosis (1) Syncope and collapse: Status: Acute Reason for Visit Reason for Visit: passed out and hit floor Hospital Course Hospital Course Pleasant 84-year-old lady with history of hypertension, suspected dementia, came in after a syncopal episode at home with a fall. She had also per report was having diarrhea in the preceding days. She does take her medications and her [id number] has been putting them into pillboxes, although there is a question of whether she may have taken too many medications at 1 point inadvertently when after taking her medications from the pillbox she was also found fumbling with medication bottles. She reportedly had been staying away large amounts of food, a lot of it becoming rotten at home raising prior concerns of dementia. Family had previously tried to get her set up to go to assisted living but she had been declining. On initial workup she was afebrile, with minimal leukocytosis with dehydration, started on IV rehydration. Mild LC presents from 1.2. TSH normal. UA unremarkable. Assessment and imaging in ER without finding of trauma. Incidentally found degenerative changes. With rehydration dehydration resolved. LC improved. Orthostatics were rechecked and negative. She was also assessed by carotid duplex study which showed less than 50% stenosis bilaterally with diffuse plaque with surface irregularity without high-grade stenosis. Echocardiogram showing normal ejection fraction, grade 1 diastolic dysfunction, normal to mildly elevated filling pressures, no pericardial effusion. Pulm artery systolic pressure within normal limits. As she now is agreeable to proceed to assisted living, arrangements were made for discharge to assisted living today with follow-up with PCP. Physical Exam Const: COMMON NORMALS: patient oriented x3 and alert GENERAL APPEARANCE: cooperative ORIENTATION/CONSCIOUSNESS: Yes awake HENMT: COMMON NORMALS: oropharynx normal Neck/C-Spine: COMMON NORMALS: no JVD Resp: COMMON NORMALS: normal respiratory effort and clear to auscultation bilaterally AUSCULTATION: clear to auscultation bilaterally Cardio: COMMON NORMALS: no JVD, regular rhythm, S1 normal heart sound present, S2 normal heart sound present and No murmurs present (Cardio) RHYTHM: regular rhythm HEART SOUNDS: S1 normal heart sound present and S2 normal heart sound present GI: COMMON NORMALS: Normal to inspection, nondistended, normoactive bowel sounds present, Soft to palpation and non-tender PALPATION: Yes Soft to palpation Extremity: COMMON NORMALS: no joint enlargement and no pedal edema Neuro: COMMON NORMALS: patient oriented x3 and moves all extremities SENSORIUM/ORIENTATION: Yes alert Skin: COMMON NORMALS: no rashes or lesions noted GENERAL SKIN EXAM: no rashes or lesions noted Discharge Data Studies Completed and Pending Completed Studies During Hospitalization Category Date Time Status CT cervical spin wo con* [id number] Stat Cat Scan 03/19/24 16:[address] head wo con* [id number] Stat Cat Scan 03/19/24 16:52 Completed CXRP [XR chest 1V portable [id number]] Stat Exams 03/19/24 16:52 Completed XR shoulder LT min 2V* [id number] Stat Exams 03/19/24 16:52 Completed CV carotid duplex BI* [id number] Routine Ultrasound 03/20/24 06:09 Completed CV. echo complete* [id number] Routine Ultrasound 03/20/24 06:09 Completed Pending at discharge Category Date Time Status Basic Metabolic Panel AM LABS Lab 03/22/24 04:00 Ordered Basic Metabolic Panel AM LABS Lab 03/23/24 04:00 Ordered Complete Blood Count w/Auto AM LABS Lab 03/22/24 04:00 Ordered Complete Blood Count w/Auto AM LABS Lab 03/23/24 04:00 Ordered Radiology Impressions Cervical Spine CT 03/19/24 16:52 IMPRESSION: 1. No evidence of a cervical spinal fracture or traumatic malalignment. 2. There is straightening and mild reversal of the normal cervical lordosis without evidence of vertebral body listhesis or facet malalignment. This is likely positional, related to muscle spasm or underlying degenerative change. 3. Scattered spondylosis. Chest X-Ray 03/19/24 16:52 IMPRESSION: 1. No acute cardiopulmonary abnormality. Head CT 03/19/24 16:52 IMPRESSION: 1. No CT evidence of acute intracranial pathology. 2. Chronic senescent changes as above. Shoulder X-Ray 03/19/24 16:52 IMPRESSION: 1. 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 If there is strong clinical suspicion for traumatic injury, consider correlation with CT. Laboratory Results WBC 4.62 10^3/uL (3.29-11.43) 03/21/24 05:07 RBC 3.75 10^6/uL (3.85-5.65) L 03/21/24 05:07 Hgb 11.30 g/dL (11.27-16.99) 03/21/24 05:07 Hct 34.0 % (36-47) L 03/21/24 05:07 MCV 90.7 fl (85-98) 03/21/24 05:07 MCH 30.1 pg (27-33) 03/21/24 05:07 MCHC 33.2 g/dL (30-55) 03/21/24 05:07 RDW 12.2 % (12.1-15.1) 03/21/24 05:07 Plt Count 138 10^3/cmm (157-399) L 03/21/24 05:07 MPV 9.5 fL (7.4-10.4) 03/21/24 05:07 Neut % (Auto) 59.9 % 03/21/24 05:07 Lymph % (Auto) 28.1 % 03/21/24 05:07 [place] % (Auto) 9.5 % 03/21/24 05:07 Eos % (Auto) 1.9 % 03/21/24 05:07 Baso % (Auto) 0.4 % 03/21/24 05:07 Neut # (Auto) 2.76 10^3/uL (1.8-7.7) 03/21/24 05:07 Lymph # (Auto) 1.3 10^3/uL (0.8-4.8) 03/21/24 05:07 [place] # (Auto) 0.4 10^3/uL (0.2-0.9) 03/21/24 05:07 Eos # (Auto) 0.1 10^3/uL (0.0-0.8) 03/21/24 05:07 Baso # (Auto) 0.0 10^3/uL (0.0-0.1) 03/21/24 05:07 Nucleated RBC % (auto) 0 % 03/21/24 05:07 Nucleated RBCs # 0.0 /100WBC 03/21/24 05:07 Sodium 142 mmol/L (136-145) 03/21/24 05:07 Potassium 4.0 mmol/L (3.5-5.1) 03/21/24 05:07 Chloride 108 mmol/L (98-107) H 03/21/24 05:07 Carbon Dioxide 25 mmol/L (22-29) 03/21/24 05:07 Anion Gap 13.0 (5-19) 03/21/24 05:07 BUN 17 mg/dL (8-23) 03/21/24 05:07 Creatinine 1.0 mg/dL (0.5-0.9) H 03/21/24 05:07 GFR Calculation Not Reportable 03/21/24 05:07 Glucose 108 mg/dL (65-115) 03/21/24 05:07 Estimat Average Glucose 103 03/20/24 05:38 Hemoglobin A1c 5.2 % (4.0-6.0) 03/20/24 05:38 Calculated Osmolality 296 mOsm/kg (285-295) H 03/21/24 05:07 Calcium 8.8 mg/dL (8.5-10.5) 03/21/24 05:07 Phosphorus 3.7 mg/dL (2.5-4.5) 03/20/24 05:38 Magnesium 2.1 mg/dL (1.7-2.3) 03/20/24 05:38 Iron 118 ug/dL (37-145) 03/19/24 17:00 TIBC 322 mcg/dl 03/19/24 17:00 % Saturation 36.6 % (20-50) 03/19/24 17:00 Unsat Iron Binding 204 ug/dL (112-347) 03/19/24 17:00 Total Bilirubin 0.6 mg/dL (0.15-1.2) 03/20/24 05:38 AST 22 U/L (0-32) 03/20/24 05:38 ALT 12 U/L (0-33) 03/20/24 05:38 Alkaline Phosphatase 75 U/L (35-105) 03/20/24 05:38 Total Protein 5.8 g/dL (6.6-8.7) L 03/20/24 05:38 Albumin 3.8 g/dL (3.5-5.2) 03/20/24 05:38 Globulin 2.0 g/dL (1.3-4.6) 03/20/24 05:38 Triglycerides 93 mg/dL (0-150) 03/20/24 05:38 Cholesterol 218 mg/dL (0-200) H 03/20/24 05:38 LDL Cholesterol, Calc 146 mg/dL (50-129) H 03/20/24 05:38 HDL Cholesterol 53 mg/dL (60-100) L 03/20/24 05:38 LDL/HDL Ratio 2.75 RATIO (0.00-3.22) 03/20/24 05:38 Cholesterol/HDL Ratio 4.11 mg/dL (0.0-4.40) 03/20/24 05:38 Vitamin B12 452 pg/mL (232-1245) 03/19/24 17:00 Folate 11.9 ng/mL (4.8-37.3) 03/20/24 05:38 Procalcitonin 0.08 ng/mL (0-0.5) 03/20/24 05:38 TSH 3.66 uIU/mL (0.27-4.20) 03/19/24 17:00 Urine Color Yellow (Yellow) 03/20/24 02:48 Urine Appearance Clear (CLEAR) 03/20/24 02:48 Urine pH 5.5 (5-7) 03/20/24 02:48 Ur Specific [place] 1.014 (1.005-1.030) 03/20/24 02:48 Urine Protein Negative (Negative) 03/20/24 02:48 Urine Glucose (UA) Negative (Normal) 03/20/24 02:48 Urine Ketones Negative (Negative) 03/20/24 02:48 Urine Blood Negative (Negative) 03/20/24 02:48 Urine Nitrate Negative (Negative) 03/20/24 02:48 Urine Bilirubin Negative (Negative) 03/20/24 02:48 Urine Urobilinogen 1.0 mg/dL (Negative) 03/20/24 02:48 Ur Leukocyte Esterase Negative (Negative) 03/20/24 02:48 Urine RBC 0-2 /hpf (0-2) 03/20/24 02:48 Urine WBC 0-5 /hpf (0-5) 03/20/24 02:48 Ur Squamous Epith Cells 0-5 /hpf (0-5) 03/20/24 02:48 Amorphous Sediment Not Reportable 03/20/24 02:48 Urine Bacteria None seen /hpf (NONE) 03/20/24 02:48 Hyaline Casts 1.21 /lpf 03/20/24 02:48 Vitals Last Vital Signs Temp 98.1 F 03/21/24 08:00 Pulse 100 03/21/24 08:00 Resp 17 03/21/24 08:00 BP 156/79 03/21/24 08:00 Pulse Ox 97 03/21/24 08:00 O2 Del Method Room Air 03/21/24 08:00 Discharge Plan Discharge Patient Disposition: Xfer SNF Condition: Stable Prescriptions: New aspirin 81 mg capsule 81 mg PO DAILY Qty: 90 0RF Continued lisinopril 20 mg tablet 20 mg PO DAILY potassium chloride 10 mEq tablet extended release 10 meq PO DAILY lovastatin 20 mg tablet 20 mg PO DAILY Held hydrochlorothiazide 50 mg tablet 50 mg PO DAILY Hold Instructions: Resume on 03/27/24. Discharge Orders: Discharge Order (Routine); Ordered 03/21/24 Ordered By: Giuliano Hernandez Referrals: [facility] [Outside] Janette Corona MD [Staff Physician] - 4-7 days Discharge Diet: Cardiac Activity Restrictions/Additional Instructions: Follow-up with your primary provider for further assessment after episode of syncope (fainting). Monitor your blood pressure, continue to optimize blood pressure control. Avoid taking any extra medications. In case you get lightheaded or dizzy or feel like you might faint, sit down or lie down immediately and call for help. Seek medical attention in case of any worsening or new concerning symptoms. Follow-up with your primary doctor regarding less than 50% bilateral carotid artery disease with plaque and surface irregularity. Continue cholesterol medi cation. You are also started on low-dose aspirin. Please hold hydrochlorothiazide until Wednesday due to recent dehydration after diarrhea. Hold diuretic in case of dehydration or diarrhea in the future. Discharge Attestations Time Spent in Discharge Care*: greater than 30 min Quality Metrics Clinical Quality Measures [ No reported AMI, CVA or VTE this stay] Coding Level of Care Code 64605 Total time (in minutes) for Discharge: 45 Diagnoses Syncope and collapse R55
[2024-03-21] MEDS: atorvastatin 40 mg Tablet 20 MG PO (08:59)
[2024-03-21] MEDS: lisinopril 20 mg Tablet PO (09:00)
[2024-03-21] MEDS: famotidine 20 mg Tablet PO (09:00)
--- NOTE | 2024-03-21 11:31 | PC.NURSE ---
2 attempts made to call and give report and no answer.
[2024-03-21 11:44] LABS: SARS Covid-2 Antigen Negative (Negative)
[2024-03-21 12:00] VITALS: BP 132/79; PULSE 77; RESP 17; TEMP 36.7; O2SAT 97
--- NOTE | 2024-03-21 13:21 | PC.NURSE ---
1215 report called to MELODY Garzon at [facility]. Reason for admission, skin, mentation, and all other concerns and questions answered. discharge packet discussed with pt and family at bedside. Packet sent with pt to give to care home. Pt escorted by staff via wheelchair to private vehicle.
[2024-03-21 13:27] VITALS: BP 132/79; PULSE 77; RESP 17; TEMP 36.7; O2SAT 97
== END 2024-03-21 12:34 | disposition skilled nursing facility (03) ==
LOC: ER 17:02 → MEDSURG 20:15
PROVIDERS: Admitting Provider Student in an Organized Health Care Education/Training Program; Emergency Provider Emergency Medicine; Visit Provider Internal Medicine
DX: R55 Syncope and collapse (principal); I10 Essential (primary) hypertension; F03.90 Unspecified dementia, unspecified severity, without behavioral disturbance, psychotic disturbance, mood disturbance, and anxiety; Z91.81 History of falling; R19.7 Diarrhea, unspecified; E86.0 Dehydration; N17.9 Acute kidney failure, unspecified
CPT/HCPCS: 36415; 70450; 71045; 72125; 73030; 80048; 80053; 80061; 81001; 82607; 82746; 83036; 83540; 83550; 83735; 84100; 84145; 84443; 85025; 87426; 93005; 93306; 93880; 94664; 96360; 96372; 97161; 97167; 99285; G0378; J1644; J7030

== ENCOUNTER 2024-05-27 16:59 | Emergency (ER) | payer MEDICARE, OTHER, SELFPAY ==
[2024-05-27 17:00] VITALS: BP 140/85; PULSE 99; RESP 16; TEMP 36.9; O2SAT 97; BMI 26.4
--- NOTE | 2024-05-27 17:13 | CTR_ITS ---
PROCEDURE INFORMATION: Exam: CT Head Without Contrast Exam date and time: 05/27/2024 5:30 PM Age: 84 years old Clinical indication: Injury or trauma; Fall; Bleeding/hemorrhage and blunt trauma (contusions or hematomas); Without loss of consciousness; Additional info: Head injury TECHNIQUE: Imaging protocol: Computed tomography of the head without contrast. Radiation optimization: All CT scans at this facility use at least one of these dose optimization techniques: automated exposure control; mA and/or kV adjustment per patient size (includes targeted exams where dose is matched to clinical indication); or iterative reconstruction. COMPARISON: CT head wo con* [id number] 03/19/2024 5:03 PM RADIATION DOSE METRICS: Total DLP (mGy-cm): 1149.1 FINDINGS: Brain: There is diffuse cerebral atrophy present, consistent with this patient's age. Periventricular and subcortical white matter low densities are present which at this age likely represent microvascular ischemic change. No evidence for large acute ischemic infarction. Please note acute ischemia can be occult by head CT. No evidence for acute intracranial hemorrhage. Calcified plaque is present within the intracranial vasculature. Cerebral ventricles: No ventriculomegaly. Paranasal sinuses: There is frothy mucosal thickening in the sphenoid sinuses. Mastoid air cells: Visualized mastoid air cells are well aerated. Bones: Unremarkable. No acute fracture. Soft tissues: Unremarkable. CT/CT head wo con* [id number] IMPRESSION: There are senescent changes of the brain as described above. No evidence for large acute ischemic infarction or acute intracranial injury.
--- NOTE | 2024-05-27 17:13 | ECG_ITS ---
[facility]: 2024-05[facility]27 Pat Name: Becky Knight Department: Room: Gender: Female Data Entry Supervisor: : 1940 Requested By: Shannan Sim Order Number: [id number] Agusto MD: Sage Stewart M.D. Measurements Intervals [place] Rate: 90 P: 51 VT: 186 QRS: 42 QRSD: 88 T: 61 QT: 376 QTc: 462 Interpretive Statements SINUS RHYTHM Compared to ECG 03/19/2024 16:46:30 Sinus tachycardia no longer present Electronically Signed On 05-28-2024 20:06:42 [employer]ILVER [employer]DER[employer] by Sage Stewart M.D. [email or web address]
--- NOTE | 2024-05-27 17:27 | ED_ITS ---
HPI - Fall 2 General: Chief Complaint: Fall Stated Complaint: ams; fall Time Seen by Provider: 05/27/24 17:03 Source: patient and EMS Mode of arrival: EMS Limitations: no limitations History of Present Illness: 84-year-old female history dementia is h ere from long term after a fall. Patient had unwitnessed fall does have an abrasion to her forehead per EMS nursing states she had some slight confusion from her baseline here she is answer my questions appropriately knows her name knows where she is. Associated symptoms-after fall: Reports headache(s); Denies abdominal pain, chest pain or neck pain Related Data Home Medications Medication Instructions Recorded Confirmed hydrochlorothiazide 50 mg tablet 50 mg PO DAILY 03/19/24 03/19/24 lisinopril 20 mg tablet 20 mg PO DAILY 03/19/24 03/19/24 lovastatin 20 mg tablet 20 mg PO DAILY 03/19/24 03/19/24 potassium chloride 10 mEq 10 meq PO DAILY 03/19/24 03/19/24 tablet,extended release Previous Rx's Medication Instructions Recorded aspirin 81 mg capsule 81 mg PO DAILY #90 caps 03/21/24 Allergies Allergy/AdvReac Type Severity Reaction Status Date / Time No Known Allergies Allergy Verified 03/19/24 16:39 Review of Systems 2 Const: Denies: fever(s), chills, body aches or change in appetite Eyes: Denies: blurry vision or eye discomfort ENMT: Denies: throat pain or dental pain Card: Denies: chest pain Resp: Denies: dyspnea GI: Denies: abdominal pain, nausea, vomiting or diarrhea : Denies: dysuria or dribbling Musc: Denies: neck pain or back pain Skin/Breast: Denies: rash Neuro: Reports: headache(s) Physical Exam 2 Const: COMMON NORMALS: no acute distress, patient oriented x3 and healthy appearing HENMT: COMMON NORMALS: normocephalic HEAD & SCALP: normocephalic OTHER: 1cm superficial lac to r forehead Eye: COMMON NORMALS: Equal, round and reactive pupils present and EOMs intact bilaterally PUPIL: Yes Equal, round and reactive pupils present Neck/C-Spine: COMMON NORMALS: full ROM and supple Chest: COMMONS NORMALS: normal inspection of the chest and normal palpation of entire chest wall Resp: COMMON NORMALS: normal respiratory effort, No retractions, No use of accessory muscles and clear to auscultation bilaterally AUSCULTATION: clear to auscultation bilaterally Cardio: COMMON NORMALS: regular rate, regular rhythm and No murmurs present (Cardio) RATE: regular rate RHYTHM: regular rhythm GI: COMMON NORMALS: Normal to inspection, nondistended, normoactive bowel sounds present, Soft to palpation, non-tender and no masses PALPATION: Yes Soft to palpation Extremity: COMMON NORMALS: normal to inspection and full ROM Neuro: COMMON NORMALS: patient oriented x3, moves all extremities and no focal motor deficits Psych: COMMON NORMALS: mental status grossly normal, Normal thought process present and cooperative THOUGHT PROCESS: Normal thought process present Skin: COMMON NORMALS: no rashes or lesions noted and no wounds GENERAL SKIN EXAM: no rashes or lesions noted Procedures Laceration Laceration 1: Site: scalp Side (If applicable): right Size (cm): 1 Description: linear Depth: simple, single layer Pre-repair: wound explored and irrigated extensively Skin layer closed with: other (dermabond) Course 2 Vital Signs: Vital signs: Vital Signs Temperature 98.4 F 05/27/24 17:00 Pulse Rate 95 05/27/24 19:24 Respiratory Rate 18 05/27/24 19:24 Blood Pressure 117/81 05/27/24 19:24 Pulse Oximetry 96 05/27/24 19:24 Oxygen Delivery Me thod Room Air 05/27/24 19:24 MDM - Fall Medical Decision Making Patient presents here with head laceration after a fall imaging blood work here are normal she is at her baseline did repair the superficial laceration with Dermabond she is stable for discharge follow-up with PCP return if worsening. Medical Records I reviewed the patient's medical records. Lab Data I reviewed the patient's lab results. 05/27/24 17:42 05/27/24 16:[address] 05/27/24 17:13 IMPRESSION: There are senescent changes of the brain as described above. No evidence for large acute ischemic infarction or acute intracranial injury. Cervical Spine CT 05/27/24 17:28 IMPRESSION: There are degenerative changes as described above. No evidence for acute fracture. Laboratory Results WBC 8.97 10^3/uL (3.29-11.43) 05/27/24 17:42 Corrected WBC Cancelled 05/27/24 16:48 RBC 4.13 10^6/uL (3.85-5.65) 05/27/24 17:42 Hgb 12.40 g/dL (11.27-16.99) 05/27/24 17:42 Hct 37.1 % (36-47) 05/27/24 17:42 MCV 89.8 fl (85-98) 05/27/24 17:42 MCH 30.0 pg (27-33) 05/27/24 17:42 MCHC 33.4 g/dL (30-55) 05/27/24 17:42 RDW 12.1 % (12.1-15.1) 05/27/24 17:42 Plt Count 164 10^3/cmm (157-399) 05/27/24 17:42 MPV 9.8 fL (7.4-10.4) 05/27/24 17:42 Gran % Cancelled 05/27/24 16:48 Neut % (Auto) 80.7 % 05/27/24 17:42 Lymph % (Auto) 11.5 % 05/27/24 17:42 [place] % (Auto) 7.2 % 05/27/24 17:42 Eos % (Auto) 0.2 % 05/27/24 17:42 Baso % (Auto) 0.1 % 05/27/24 17:42 Neut # (Auto) 7.23 10^3/uL (1.8-7.7) 05/27/24 17:42 Lymph # (Auto) 1.0 10^3/uL (0.8-4.8) 05/27/24 17:42 [place] # (Auto) 0.7 10^3/uL (0.2-0.9) 05/27/24 17:42 Eos # (Auto) 0.0 10^3/uL (0.0-0.8) 05/27/24 17:42 Baso # (Auto) 0.0 10^3/uL (0.0-0.1) 05/27/24 17:42 Absolute Gran (auto) Cancelled 05/27/24 16:48 Nucleated RBC % (auto) 0 % 05/27/24 17:42 Nucleated RBCs # 0.0 /100WBC 05/27/24 17:42 PT 12.80 SECONDS (12.1-14.9) 05/27/24 16:48 INR 0.94 (0.8-1.2) 05/27/24 16:48 Sodium 138 mmol/L (136-145) 05/27/24 16:48 Potassium 4.1 mmol/L (3.5-5.1) 05/27/24 16:48 Chloride 100 mmol/L (98-107) 05/27/24 16:48 Carbon Dioxide 27 mmol/L (22-29) 05/27/24 16:48 Anion Gap 15.1 (5-19) 05/27/24 16:48 BUN 23 mg/dL (8-23) 05/27/24 16:48 Creatinine 0.8 mg/dL (0.5-0.9) 05/27/24 16:48 GFR Calculation Not Reportable 05/27/24 16:48 Glucose 109 mg/dL (65-115) 05/27/24 16:48 Calculated Osmolality 290 mOsm/kg (285-295) 05/27/24 16:48 Calcium 9.8 mg/dL (8.5-10.5) 05/27/24 16:48 Total Bilirubin 0.7 mg/dL (0.15-1.2) 05/27/24 16:48 AST 21 U/L (0-32) 05/27/24 16:48 ALT 10 U/L (0-33) 05/27/24 16:48 Alkaline Phosphatase 109 U/L (35-105) H 05/27/24 16:48 Total Protein 7.1 g/dL (6.6-8.7) 05/27/24 16:48 Albumin 4.4 g/dL (3.5-5.2) 05/27/24 16:48 Globulin 2.7 g/dL (1.3-4.6) 05/27/24 16:48 All radiology interpretation(s) finalized by discharge EKG Data EKG 1: I personally reviewed and interpreted this EKG as follows: EKG interpretation date: 05/27/24 EKG interpretation time: 18:23 Interpretation: nsr hr [address] e levation qrs 88 qtc 424 Discharge Plan Discharge Patient Disposition: Home Clinical Impression: Fall, Head injury Condition: Stable Prescriptions: No Action hydrochlorothiazide 50 mg tablet 50 mg PO DAILY Hold Instructions: Resume on 03/27/24. lisinopril 20 mg tablet 20 mg PO DAILY potassium chloride 10 mEq tablet extended release 10 meq PO DAILY lovastatin 20 mg tablet 20 mg PO DAILY aspirin 81 mg capsule 81 mg PO DAILY Qty: 90 0RF Discharge Orders: Discharge ED (Routine); Ordered 05/27/24 Ordered By: Shannan Sim Discharge Diet: Advance as tolerated Discharge Activity: Resume usual activity Patient Instructions: Head Injury (ED) Coding Level of Care Code ED Perioperative Assistant for Taco Moise
--- NOTE | 2024-05-27 17:28 | CTR_ITS ---
PROCEDURE INFORMATION: Exam: CT Cervical Spine Without Contrast Exam date and time: 05/27/2024 5:30 PM Age: 84 years old Clinical indication: Injury or trauma; Fall; Blunt trauma TECHNIQUE: Imaging protocol: Computed tomography of the cervical spine without contrast. Radiation optimization: All CT scans at this facility use at least one of these dose optimization techniques: automated exposure control; mA and/or kV adjustment per patient size (includes targeted exams where dose is matched to clinical indication); or iterative reconstruction. COMPARISON: CT cervical spin wo con* [id number] 03/19/2024 5:03 PM RADIATION DOSE METRICS: Total DLP (mGy-cm): 1010.7 FINDINGS: Bones/joints: There are degenerative changes throughout the visualized spine including marginal osteophyte formations, endplate degenerative changes, and facet arthropathy. Multilevel disc space narrowing. Usual cervical lordosis is straightened. C2-C3: No significant disc bulge or herniation. No severe spinal canal stenosis. No significant neural foraminal narrowing. C3-C4: No significant disc bulge or herniation. No severe spinal canal stenosis. No significant neural foraminal narrowing. C4-C5: No significant disc bulge or herniation. No severe spinal canal stenosis. No significant neural foraminal narrowing. C5-C6: No significant disc bulge or herniation. No severe spinal canal stenosis. No significant neural foraminal narrowing. C6-C7: No significant disc bulge or herniation. No severe spinal canal stenosis. No significant neural foraminal narrowing. C7-T1: No significant disc bulge or herniation. No severe spinal canal stenosis. No significant neural foraminal narrowing. Auditory system: There is cerumen in the external auditory canals. Lungs: Lung apices are normal. Soft tissues: Unremarkable. CT/CT cervical spin wo con* [id number] IMPRESSION: There are degenerative changes as described above. No evidence for acute fracture.
[2024-05-27 17:38] LABS: INR 0.94 (0.8-1.2)
[2024-05-27 17:47] LABS: Alanine Aminotransferase 10 U/L (0-33); Albumin Level 4.4 g/dL (3.5-5.2); Alkaline Phosphatase 109 U/L (35-105); Anion Gap 15.1 (5-19); Aspartate Amino Transferase 21 U/L (0-32); Blood Urea Nitrogen 23 mg/dL (8-23); Calcium 9.8 mg/dL (8.5-10.5); Carbon Dioxide 27 mmol/L (22-29); Chloride 100 mmol/L (98-107); Creatinine Clr Calc Pharmacy 46.2882; Globulin 2.7 g/dL (1.3-4.6); Glucose 109 mg/dL (65-115); Osmolality Calculated 290 mOsm/kg (285-295); Potassium 4.1 mmol/L (3.5-5.1); Sodium 138 mmol/L (136-145); Total Bilirubin 0.7 mg/dL (0.15-1.2); Total Protein 7.1 g/dL (6.6-8.7)
[2024-05-27 17:52] VITALS: BP 144/87; PULSE 96; RESP 23; O2SAT 98
[2024-05-27 17:52] LABS: Basophils % 0.1 %; Eosinophils % 0.2 %; Hematocrit 37.1 % (36-47); Lymphocytes % 11.5 %; Mean Corpuscular HGB Conc 33.4 g/dL (30-55); Mean Corpuscular Volume 89.8 fl (85-98); Mean Platelet Volume 9.8 fL (7.4-10.4); Monocytes # 0.7 10^3/uL (0.2-0.9); Monocytes % 7.2 %; Neutrophils # 7.23 10^3/uL (1.8-7.7); Neutrophils % 80.7 %; Nucleated Red Blood Cells % 0 %; Platelet Count 164 10^3/cmm (157-399); Red Blood Count 4.13 10^6/uL (3.85-5.65); Red Cell Distribution Width 12.1 % (12.1-15.1); White Blood Count 8.97 10^3/uL (3.29-11.43)
[2024-05-27 18:25] VITALS: PULSE 93; RESP 26; O2SAT 96
[2024-05-27 19:24] VITALS: BP 117/81; PULSE 95; RESP 18; O2SAT 96
[2024-05-27 19:48] VITALS: BP 131/84; PULSE 92; RESP 18; O2SAT 98
== END 2024-05-27 19:54 | disposition home or self-care (01) ==
PROVIDERS: Emergency Provider Emergency Medicine
DX: S01.01XA Laceration without foreign body of scalp, initial encounter (principal); W19.XXXA Unspecified fall, initial encounter; Z79.82 Long term (current) use of aspirin; S09.90XA Unspecified injury of head, initial encounter
CPT/HCPCS: 12011; 36415; 70450; 72125; 80053; 85025; 85610; 93005; 99284

== ENCOUNTER → 2024-05-30 13:05 | Outpatient (BNVA) | payer MEDICARE, OTHER, SELFPAY | PROVIDERS: Referring Provider Nurse Practitioner Family; Visit Provider Nurse Practitioner Family | DX: L81.4 Other melanin hyperpigmentation (principal); L57.8 Other skin changes due to chronic exposure to nonionizing radiation; D22.39 Melanocytic nevi of other parts of face; L82.1 Other seborrheic keratosis; L21.8 Other seborrheic dermatitis; L57.0 Actinic keratosis | CPT/HCPCS: 17000; 99204 ==

== ENCOUNTER 2025-02-05 18:57 | Emergency (ER) | payer MEDICARE, OTHER, SELFPAY ==
[2025-02-05 18:58] VITALS: BP 126/83; PULSE 102; RESP 17; TEMP 36.9; O2SAT 95; BMI 28.6
--- NOTE | 2025-02-05 19:02 | CTR_ITS ---
PROCEDURE INFORMATION: Exam: CT Head Without Contrast Exam date and time: 02/05/2025 7:14 PM Age: 84 years old Clinical indication: Injury or trauma; Fall; Blunt trauma (contusions or hematomas); Consciousness not specified; Additional info: Fall, head injury TECHNIQUE: Imaging protocol: Computed tomography of the head without contrast. Radiation optimization: All CT scans at this facility use at least one of these dose optimization techniques: automated exposure control; mA and/or kV adjustment per patient size (includes targeted exams where dose is matched to clinical indication); or iterative reconstruction. COMPARISON: CT head wo con* [id number] 05/27/2024 5:30 PM RADIATION DOSE METRICS: Total DLP (mGy-cm): 1051.38 FINDINGS: Brain: No acute infarction, hemorrhage, mass, or extra-axial fluid collection is identified. No midline shift. Advanced confluent chronic white matter microangiopathy. Generalized atrophy again noted. Cerebral ventricles: No hydrocephalus. Paranasal sinuses: Paranasal sinuses are grossly clear. Mastoid air cells: Mastoid air cells are grossly clear. Bones: Calvarium appears intact. Soft tissues: Mild left frontoparietal scalp swelling. CT/CT head wo con* [id number] IMPRESSION: No acute intracranial abnormality.
--- NOTE | 2025-02-05 19:20 | W.ED.FALL ---
HPI - Fall General: Chief Complaint: Fall Stated Complaint: fall Time Seen by Provider: 02/05/25 19:00 History of Present Illness: 84-year-old female who presents to the emergency room by ambulance from intermediate if she had a syncopal episode on the toilet. This happened in the past multiple times. Nothing is ever been able to be determined as to why. Sounds like likely a vasovagal episode. She says she feels fine now. She has a bruise on the back of her head but otherwise no neck pain. No chest pain. She has some dementia but is alert and oriented to family while in here. Related Data Home Medications ?Medication ?Instructions ?Recorded ?Confirmed hydrochlorothiazide 50 mg tablet 50 mg PO DAILY 03/19/24 03/19/24 Held on 03/21/24. Instructions: Resume on 03/27/24. lisinopril 20 mg tablet 20 mg PO DAILY 03/19/24 03/19/24 lovastatin 20 mg tablet 20 mg PO DAILY 03/19/24 03/19/24 potassium chloride 10 mEq 10 meq PO DAILY 03/19/24 03/19/24 tablet,extended release Previous Rx's ?Medication ?Instructions ?Recorded aspirin 81 mg capsule 81 mg PO DAILY #90 caps 03/21/24 Allergies Allergy/AdvReac Type Severity Reaction Status Date / Time No Known Allergies Allergy Verified 03/19/24 16:39 Review of Systems Narrative: Constitutional symptoms: Negative except as documented in HPI. Skin symptoms: Negative except as documented in HPI. Eye symptoms: Negative except as documented in HPI. ENMT symptoms: Negative except as documented in HPI. Respiratory symptoms: Negative except as documented in HPI. Cardiovascular symptoms: Negative except as documented in HPI. Gastrointestinal symptoms: Negative except as documented in HPI. Genitourinary symptoms: Negative except as documented in HPI. Musculoskeletal symptoms: Negative except as documented in HPI. Neurologic symptoms: Negative except as documented in HPI. Psychiatric symptoms: Negative except as documented in HPI. Endocrine symptoms: Negative except as documented in HPI. [facility] ED PFSH: Social History Smoking and tobacco/nicotine status: never used tobacco/nicotine Physical Exam Narrative: EXAM NARRATIVE: General: Alert, no acute distress. Skin: Warm, dry. Head: Normocephalic, atraumatic. Neck: Supple, trachea midline. Eye: Extraocular movements are intact. Ears, nose, mouth and throat: mucosa moist. Cardiovascular: Regular, Normal peripheral perfusion. Respiratory: Lungs are clear to auscultation, respirations are non-labored, breath sounds are equal, Symmetrical chest wall expansion. Gastrointestinal: Soft, Nontender, Non distended Musculoskeletal: Normal ROM, no deformity. Neurological: Alert and oriented, No focal neurological deficit observed. Psychiatric: Cooperative, appropriate mood & affect. Course Vital Signs: Vital signs: Vital Signs Temperature 98.5 F 02/05/25 18:58 Pulse Rate 102 H 02/05/25 18:58 Respiratory Rate 17 02/05/25 18:58 Blood Pressure 126/83 02/05/25 18:58 Pulse Oximetry 95 02/05/25 18:58 Oxygen Delivery Me thod Room Air 02/05/25 18:58 MDM - Fall Medical Decision Making Medical decision making: Differential diagnosis including but not limited to and based on the above HPI, review of systems and physical exam: patient with fall and head injury. Subdural hematoma, subarachnoid hemorrhage, concussion, skull fracture. Orders placed to evaluate differential diagnosis based on the above differential, HPI and physical exam CT scan of the head was ordered. CT head: Extensive senescent changes. No acute intracranial process. no intracranial hemorrhage, no evidence of infarct. no evidence of acute fracture.This was reviewed and interpreted by myself the ER physician. I reviewed the patient's medical record. Reexamination: I reexamined the patient. Spoke with family. She has had no increased work of breathing. Blood pressure is in the 130s systolic with a heart rate in the 90s on discharge. Assessment and plan: Head injury Possible concussion - Discharged home - Discussed plan with patient. Answered any questions. - Evaluation and treatment of this problem were appropriate in the emergency setting. Lab Data Radiology Impressions Head CT 02/05/25 19:02 IMPRESSION: No acute intracranial abnormality. All radiology interpretation(s) finalized by discharge Discharge Plan Discharge Patient Disposition: Home Clinical Impression: Head injury Condition: Stable Prescriptions: No Action hydrochlorothiazide 50 mg tablet 50 mg PO DAILY lisinopril 20 mg tablet 20 mg PO DAILY potassium chloride 10 mEq tablet extended release 10 meq PO DAILY lovastatin 20 mg tablet 20 mg PO DAILY aspirin 81 mg capsule 81 mg PO DAILY Qty: 90 0RF Discharge Orders: Discharge ED (Routine); Ordered 02/05/25 Ordered By: Bobbi Bautista Discharge Diet: Usual diet Discharge Activity: Increase activity as tolerated Patient Instructions: Concussion (ED), Opioid Safety, Pain Management, Patient Portal & Martinez Instructions Activity Restrictions/Additional Instructions: Thank you for choosing [facility] for your healthcare needs today. You have been screened and evaluated and felt safe for discharge. Health conditions do change or evolve sometimes and as such it is important that you follow up with your Primary Doctor to be re checked, 3-5 days is a general good time frame for follow up. 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
[2025-02-05 20:07] VITALS: BP 135/85; PULSE 96; RESP 16; O2SAT 96
--- NOTE | 2025-02-05 20:46 | PC.NURSE ---
Pt report called to [facility] spoke with nurse Clara Gonzalez, denied further questions.
[2025-02-05 21:00] VITALS: BP 157/95; PULSE 92; RESP 14; O2SAT 97
[2025-02-05 21:41] VITALS: BP 157/95; PULSE 94; RESP 14; O2SAT 97
== END 2025-02-05 21:40 | disposition home or self-care (01) ==
PROVIDERS: Emergency Provider Emergency Medicine
DX: S09.90XA Unspecified injury of head, initial encounter (principal); W18.11XA Fall from or off toilet without subsequent striking against object, initial encounter; Z79.82 Long term (current) use of aspirin
CPT/HCPCS: 70450; 99284

== ENCOUNTER 2025-03-28 15:00 | Emergency (ER) | payer MEDICARE, OTHER, SELFPAY ==
[2025-03-28 15:00] VITALS: BP 173/143; PULSE 87; RESP 18; TEMP 36.7; O2SAT 95; BMI 25.6
--- NOTE | 2025-03-28 15:05 | CT_ITS ---
WS: [id number] CT HEAD NONCONTRAST HISTORY: trauma TECHNIQUE: Contiguous axial imaging performed through the brain. Bone and soft tissue windows. Sagittal and coronal reformats reviewed. All CT scans at [facility] use at least one of these dose optimization techniques: automated exposure control; mA and/or kV adjustment per patient size (includes targeted exams where dose is matched to clinical indication); or iterative reconstruction. DLP: 1303.62 mGy.cm COMPARISON: 02/05/2025 No acute intracranial hemorrhage, midline shift or mass effect. Moderate atrophy and severe confluent small vessel disease. No acute intracranial blood products. Ventricles: Dilated ventricles on the basis of central and peripheral atrophy. No inferior displacement of cerebellar tonsils. Paranasal sinuses: Small amount of debris in the sphenoid sinuses. No air-fluid levels. Mastoid air cells: Well pneumatized. Calvarium and scalp: No skull fracture. There is a large acute scalp hematoma centered over the LEFT high parietal bone. CT/CT head wo con* [id number] IMPRESSION: 1. No acute intracranial hemorrhage or edema. 2. Moderate atrophy with severe confluent small vessel disease. 3. No skull fracture. 4. Large acute scalp hematoma centered over the LEFT high parietal bone.
--- NOTE | 2025-03-28 15:05 | CT_ITS ---
WS: [id number] CT CERVICAL SPINE HISTORY: trauma TECHNIQUE: Contiguous 2.0 mm axial imaging performed through the entire cervical spine. Sagittal and coronal reformats also performed. All CT scans at [facility] use at least one of these dose optimization techniques: automated exposure control; mA and/or kV adjustment per patient size (includes targeted exams where dose is matched to clinical indication); or iterative reconstruction. DLP: 1303.62 mGy.cm COMPARISON: 05/27/2024 Reversal of the normal cervical lordosis. Slight anterolisthesis of C4 by 2 mm. No acute fracture. Facet joints are normally aligned and similar to the study from 05/27/2024. No acute fractures. Lateral masses of C1 and C2 are aligned. Odontoid is intact. C2-C3: Small central disc protrusion. Marked facet arthritis greatest on the RIGHT. C3-C4: Severe bilateral facet joint arthritis. Bilateral foraminal stenosis. C4-C5: LEFT foraminal stenosis. C5-C6: Osteophytic ridging with mild LEFT foraminal stenosis. C6-C7: Mild osteophytic ridging and foraminal stenosis. C7-T1: Normal. Paravertebral soft tissues are negative. CT/CT cervical spin wo con* [id number] IMPRESSION: 1. No acute cervical spine fracture. 2. Reversal the normal cervical lordosis. 3. Facet joint arthropathy. No facet joint subluxation.
--- NOTE | 2025-03-28 15:07 | W.ED.HEATRA ---
HPI - Head Injury General: Chief complaint: Head Injury Stated complaint: Fell Time Seen by Provider: 03/28/25 15:00 History of Present Illness: 85-year-old female presents emergency room via EMS she fell backwards at [place] hit the back of her head she has some bleeding has a bandage with ABD in the back of her head she is in a c-collar she is not really able to answer any questions she thinks she still in the ambulance. No vomiting. She is not on any anticoagulants she does take aspirin daily Related Data Home Medications ?Medication ?Instructions ?Recorded ?Confirmed acetaminophen 325 mg tablet 650 mg PO Q4H PRN Pain 03/28/25 03/28/25 aspirin 81 mg tablet,delayed 81 mg PO DAILY 03/28/25 03/28/25 release bisacodyl 10 mg rectal suppository 10 mg DE DAILY PRN Constipation 03/28/25 03/28/25 (Dulcolax (bisacodyl)) magnesium hydroxide 400 mg/5 mL 30 ml PO DAILY PRN Constipation 03/28/25 03/28/25 oral suspension (Milk of Magnesia) sertraline 100 mg tablet 100 mg PO DAILY 03/28/25 03/28/25 sodium phosphates 19 gram-7 118 ml DE DAILY PRN Constipation 03/28/25 03/28/25 gram/118 mL enema (Fleet Enema) Previous Rx's ?Medication ?Instructions ?Recorded cephalexin 500 mg capsule 500 mg PO TID #15 caps 03/28/25 Allergies Allergy/AdvReac Type Severity Reaction Status Date / Time No Known Allergies Allergy Verified 03/19/24 16:39 Review of Systems General: Reports: ROS unobtainable due to mental status PFS ED PFSH: Social History Smoking and tobacco/nicotine status: never used tobacco/nicotine Physical Exam Const: GENERAL APPEARANCE: cooperative ORIENTATION/CONSCIOUSNESS: Yes awake HENMT: COMMON NORMALS: normocephalic and hearing grossly normal bilaterally HEAD & SCALP: normocephalic OTHER: Hematoma in the left upper occiput bandage in place later when removed there is abraded areas but no clear laceration there is some arterial bleeding Resp: COMMON NORMALS: normal respiratory effort, No retractions, No use of accessory muscles and clear to auscultation bilaterally AUSCULTATION: clear to auscultation bilaterally Cardio: COMMON NORMALS: regular rate, regular rhythm and No murmurs present (Cardio) RATE: regular rate RHYTHM: regular rhythm GI: COMMON NORMALS: Soft to palpation and No hepatosplenomegaly present AUSCULTATION: Yes normoactive bowel sounds PALPATION: Yes Soft to palpation, No Tenderness to palpation present (GI), No Guarding due to palpation present (GI) and Yes No hepatosplenomegaly present Extremity: COMMON NORMALS: normal to inspection, capillary refill normal, no clubbing, cyanosis or edema, no calf tenderness and no pedal edema Skin: COMMON NORMALS: no rashes or lesions noted GENERAL SKIN EXAM: no rashes or lesions noted Procedures Laceration Laceration 1: Site: scalp Side (If applicable): left Size (cm): 1.5 Description: irregular Depth: simple, single layer Local Anesthetic: lidocaine 1% and with epi Amount of anesthesia used (mL): 2 Skin layer closed with: other (Prolene) Size (cm): 3-0 Number of sutures: 3 Technique: simple, interrupted (Single interrupted) and other (2 [id number]) Course Vital Signs: Vital signs: Vital Signs Temperature 98.1 F 03/28/25 15:00 Pulse Rate 76 03/28/25 16:31 Respiratory Rate 18 03/28/25 16:15 Blood Pressure 186/113 03/28/25 16:31 Pulse Oximetry 96 03/28/25 16:31 Oxygen Delivery Me thod Room Air 03/28/25 16:15 MDM - Head Injury Medcial Decision Making CTA head and neck are negative for acute fracture. [facility] laceration has been repaired with 2 [id number] and a single interrupted suture with good hemostasis. Apply topical antibiotic ointment to the wound daily until healed and have sutures removed in 7 to 10 days. Reviewed findings with the patient and her son at the bedside. Medical Records I reviewed the patient's medical records. Lab Data I reviewed the patient's lab results. 03/28/25 14:50 03/28/25 14:50 Radiology Impressions Cervical Spine CT 03/28/25 15:05 IMPRESSION: 1. No acute cervical spine fracture. 2. Reversal the normal cervical lordosis. 3. Facet joint arthropathy. No facet joint subluxation. Head CT 03/28/25 15:05 IMPRESSION: 1. No acute intracranial hemorrhage or edema. 2. Moderate atrophy with severe confluent small vessel disease. 3. No skull fracture. 4. Large acute scalp hematoma centered over the LEFT high parietal bone. Laboratory Results WBC 7.15 10^3/uL (3.29-11.43) 03/28/25 14:50 Corrected WBC Not Reportable 03/28/25 14:50 RBC 4.88 10^6/uL (3.85-5.65) 03/28/25 14:50 Hgb 13.70 g/dL (11.27-16.99) 03/28/25 14:50 Hct 41.2 % (36-47) 03/28/25 14:50 MCV 84.4 fl (85-98) L 03/28/25 14:50 MCH 28.1 pg (27-33) 03/28/25 14:50 MCHC 33.3 g/dL (30-55) 03/28/25 14:50 RDW 13.6 % (12.1-15.1) 03/28/25 14:50 Plt Count 169 10^3/cmm (157-399) 03/28/25 14:50 MPV 9.8 fL (7.4-10.4) 03/28/25 14:50 Gran % Not Reportable 03/28/25 14:50 Neut % (Auto) 72.0 % 03/28/25 14:50 Lymph % (Auto) 17.3 % 03/28/25 14:50 [place] % (Auto) 8.7 % 03/28/25 14:50 Eos % (Auto) 1.4 % 03/28/25 14:50 Baso % (Auto) 0.3 % 03/28/25 14:50 Neut # (Auto) 5.15 10^3/uL (1.8-7.7) 03/28/25 14:50 Lymph # (Auto) 1.2 10^3/uL (0.8-4.8) 03/28/25 14:50 [place] # (Auto) 0.6 10^3/uL (0.2-0.9) 03/28/25 14:50 Eos # (Auto) 0.1 10^3/uL (0.0-0.8) 03/28/25 14:50 Baso # (Auto) 0.0 10^3/uL (0.0-0.1) 03/28/25 14:50 Absolute Gran (auto) Not Reportable 03/28/25 14:50 Nucleated RBC % (auto) 0 % 03/28/25 14:50 Nucleated RBCs # 0.0 /100WBC 03/28/25 14:50 Sodium 139 mmol/L (136-145) 03/28/25 14:50 Potassium 3.6 mmol/L (3.5-5.1) 03/28/25 14:50 Chloride 100 mmol/L (98-107) 03/28/25 14:50 Carbon Dioxide 26 mmol/L (22-29) 03/28/25 14:50 Anion Gap 16.6 (5-19) 03/28/25 14:50 BUN 26 mg/dL (8-23) H 03/28/25 14:50 Creatinine 0.9 mg/dL (0.5-0.9) 03/28/25 14:50 GFR Calculation Not Reportable 03/28/25 14:50 Glucose 97 mg/dL (65-115) 03/28/25 14:50 Calculated Osmolality 293 mOsm/kg (285-295) 03/28/25 14:50 Calcium 9.4 mg/dL (8.5-10.5) 03/28/25 14:50 Total Bilirubin 0.6 mg/dL (0.15-1.2) 03/28/25 14:50 AST 27 U/L (0-32) 03/28/25 14:50 ALT 14 U/L (0-33) 03/28/25 14:50 Alkaline Phosphatase 107 U/L (35-105) H 03/28/25 14:50 Total Protein 7.6 g/dL (6.6-8.7) 03/28/25 14:50 Albumin 4.6 g/dL (3.5-5.2) 03/28/25 14:50 Globulin 3.0 g/dL (1.3-4.6) 03/28/25 14:50 All radiology interpretation(s) finalized by discharge EKG Data EKG 1: I personally reviewed and interpreted this EKG as follows: Interpretation: EKG 03/28/2025 1504 sinus rhythm no acute ST elevation. Some nonspecific ST changes. Rate of 87 DE interval 164 QTc 477. EKG 05/27/2024 Discharge Plan Discharge Patient Disposition: Home Clinical Impression: Closed head injury, Laceration of scalp Condition: Stable Prescriptions: New cephalexin 500 mg capsule 500 mg PO TID Qty: 15 0RF No Action acetaminophen 325 mg Tablet 650 mg PO Q4H PRN (Reason: Pain) sertraline 100 mg tablet 100 mg PO DAILY aspirin [Aspir-81] 81 mg Tablet,Delayed Release (Dr/Ec) 81 mg PO DAILY magnesium hydroxide [Milk of Magnesia] 400 mg/5 mL Suspension 30 ml PO DAILY PRN (Reason: Constipation) bisacodyl [Dulcolax (bisacodyl)] 10 mg Suppository 10 mg DE DAILY PRN (Reason: Constipation) Fleet Enema 19-7 gram/118 mL Enema 118 ml DE DAILY PRN (Reason: Constipation) Discharge Orders: Discharge ED (Routine); Ordered 03/28/25 Ordered By: Ramon White Discharge Diet: Usual diet Discharge Activity: Increase activity as tolerated Patient Instructions: Opioid Safety, Pain Management, Patient Portal & Martinez Instructions Activity Restrictions/Additional Instructions: Thank you for choosing [facility] for your healthcare needs today. It is very important that you follow up as instructed or that you return to the Emergency Department should you have concerns or if your condition changes or worsens in any way. Emergency department visits are focused on emergent conditions, in some cases you may require further evaluation on an outpatient basis. You are seen emergency room after a fall or laceration to the left side of the back of your head. CT of your head and neck were unremarkable as a large hematoma on the scalp there is an abraded laceration that was closed with sutures. The sutures should be removed in 7 to 10 days. Recommend take 5 days of Keflex 1 tablet 3 times a day. Your tetanus was updated while you are at the emergency room today. Apply top of antibiotic ointment to the wound twice daily until sutures are removed. (Please note that included in your discharge packet is information concerning opioid safety and pain management. This information is given to all patients were discharged from the ER regardless of their discharge diagnosis or the medicines they usually take or are prescribed.) Print Language: Latvian Coding Level of Care Code ED Photographic Platemaker for Taco Moise
[2025-03-28 15:08] VITALS: BP 179/100; PULSE 85; RESP 18; O2SAT 97
--- OUTSIDE RECORDS SUMMARY | 2025-03-28 15:12 | XMS_ITS | Data Portability ---
Author Organization [facility], [place], [facility] Address [address] [place] [address] [place] [address] Assessment No assessment recorded. Plan of Treatment Reminders Order Date Submit Date Provider Last Modified By Organization Details Last Modified Time Details Appointments None record ed. Lab None record ed. Referral None record ed. Procedures None record ed. Surgeries None record ed. Imaging None record ed. Medication Orders None record ed. Patient TargetsNo targets recorded. Patient Instructions Encounter Date Encounter Id Patient Instructions Last Modified By Organization Details Last Modified Time 10/30/2024 [id number] Mood improved on increased dose of zoloft. reports more frequent loose stools, will d/c lovastatin and lisinopril to see if loose stools improve. [email or web address] Not available 10/30/2024 16:30:20 12/21/2024 [id number] Blood pressure reviewed with a few lows, but overall acceptable. [email or web address] Not available 01/02/2025 18:10:20 01/25/2025 [id number] Doing well, mood good. Blood pressure controlled. [email or web address] Not available 01/25/2025 14:38:08 02/08/2025 [id number] seen in ER after multiple falls. Labs good, no anemia or dehydration. D/c hctz as it could be contributing. [email or web address] Not available 02/08/2025 14:21:43 02/19/2025 [id number] mood good, no complaints. Blood pressure controlled. [email or web address] Not available 02/19/2025 15:51:09 Reason for Referral None Reported. Problems Name Problem SNOMED Code Status Onset Date Resolution Date Notes Provider Name and Address Organization Details Recorded Time Vascular dementia without behavioral disturbanc e 7364584856133 9109 Active 2024 RUBI skaggs, [facility] 5 13:06:16 Essential hypertensi on 72494480 [facility] 13:06:26 Osteoarthr itis 790052847 [facility] 5 13:06:35 Anxiety 66848323 Active 2024 [facility] 5 16:21:53 Problem Notes None recorded. Medical Equipment None Reported. Medications Name Sig Start Date Stop Date Status Note LastModified by Organization Details LastModified Time sertraline 50 mg tablet TAKE 1 TABLET BY MOUTH AT BEDTIME active Not Available Not Available No t Available Vitals Date Recorded Heart rate Respiratory rate Body temperature Oxygen saturation Oxygen saturation in Arterial blood by Pulse oximetry Systolic And Diastolic Provider Name and Address Organization Details Last Updated DateTime 5 75 /min 22 /min 97.6 [degF] 96 % 96 % 128/77 mm[Hg] RUBI [facility] 5 16:27:03 Date Recorded Heart rate Respiratory rate Body temperature Oxygen saturation Oxygen saturation in Arterial blood by Pulse oximetry Systolic And Diastolic Provider Name and Address Organization Details Last Updated DateTime 5 66 /min 19 /min 98.6 [degF] 98 % 98 % 132/74 mm[Hg] RUBI MOTLEY [facility] 5 11:33:50 Date Recorded Heart rate Respiratory rate Body temperature Oxygen saturation Oxygen saturation in Arterial blood by Pulse oximetry Systolic And Diastolic Provider Name and Address Organization Details Last Updated DateTime 5 75 /min 20 /min 97.5 [degF] 95 % 95 % 144/75 mm[Hg] RUBI MOTLEY [facility] 5 14:34:48 Date Recorded Heart rate Respiratory rate Body temperature Oxygen saturation Oxygen saturation in Arterial blood by Pulse oximetry Systolic And Diastolic Provider Name and Address Organization Details Last Updated DateTime 5 68 /min 18 /min 97.8 [degF] 98 % 98 % 142/75 mm[Hg] RUBI MOTLEY [facility] 5 15:49:50 Social History None recorded. Functional Status None recorded. Mental Status None recorded. Family History Nothing Reported. Medical History No medical history recorded. Gynecological HistoryNo gynecological history recorded. Obstetrics History GPAL:G 0 P 0 0 0 0 Immunizations Vaccine Type Date Status Note Provider Nam e and Address Organization Details Recorded Time zoster live 4 completed Not Available [facility] 02/19/2025 09:55:39 COVID-19, mRNA, LNP-S, PF, 100 mcg/0.5mL dose or 50 mcg/0.25mL dose 1 completed Not Available [facility] 02/19/2025 09:55:39 COVID-19, mRNA, LNP-S, PF, 100 mcg/0.5mL dose or 50 mcg/0.25mL dose 1 completed Not Available [facility] 02/19/2025 09:55:39 Influenza, split virus, trivalent, preservative 1 completed Not Available [facility] 02/19/2025 09:55:39 Influenza, split virus, trivalent, preservative 2 completed Not Available [facility] 02/19/2025 09:55:39 Influenza, split virus, trivalent, preservative 3 completed Not Available [facility] 02/19/2025 09:55:39 Past Encounters Encounter ID Performer Location Encounter Start Date Encounter Closed Date Diagnosis/Indication Diagnosis SNOMED-CT Code Diagnosis ICD10 Code Diagnosis IMO Codes Diagnosis Note [id number] DO REED [place] ([facility]) [address] [place] [phone] 06/12/2024 12:39:11 06/15/2024 08:32:54 Vascular dementia without behavioral disturbance 8571474944 3865321 F01.50 Essential hypertension 30550219 I10 Osteoarthritis 282208725 M19.90 [id number] DO REED [place] ([facility]) [address] [address] 5 07/20/2024 11:49:53 07/25/2024 11:17:56 Vascular dementia without behavioral disturbance 4560490556 7829535 F01.50 Essential hypertension 23176763 I10 [id number] Lawson Escobedo [facility] ([facility]) [address] [place] [address] 5 08/03/2024 08:42:13 08/08/2024 23:07:25 Vascular dementia without behavioral disturbance 3093405457 6181152 F01.50 Essential hypertension 14503946 I10 [id number] Lawson Escobedo [facility] ([facility]) [address] [place] [address] 5 08/28/2024 13:20:29 08/29/2024 07:46:13 Vascular dementia without behavioral disturbance 5745572874 0988375 F01.50 Essential hypertension 42381715 I10 Anxiety 37261357 F41.9 [id number] Lawson Escobedo [facility] ([facility]) [address] [place] [address] 5 09/06/2024 16:13:36 10/20/2024 17:38:47 [id number] Lawson Escobedo [facility] ([facility]) [address] [place] [address] 5 09/25/2024 07:52:02 09/28/2024 07:20:25 Vascular dementia without behavioral disturbance 4881834810 1035080 F01.50 Anxiety 34255603 F41.9 [id number] Lawson Fanny [facility] ([facility]) [address] [place] [address] 5 10/11/2024 08:20:40 10/15/2024 21:43:54 Anxiety 30863340 F41.9 Vascular d ementia without behavioral disturbance 1590182256 4499319 F01.50 [id number] Lawson Escobedo [facility] ([facility]) [address] [place] [address] 5 10/30/2024 14:57:43 10/31/2024 15:58:34 Vascular dementia without behavioral disturbance 5887009330 4897679 F01.50 Anxiety 74511825 F41.9 Essential hypertension 68206303 I10 [id number] Lawson Escobedo [facility] ([facility]) [address] [address] 5 12/21/2024 11:23:42 01/03/2025 08:35:51 Vascular dementia without behavioral disturbance 3138011488 7961639 F01.50 Anxiety 85551602 F41.9 Essential hypertension 98178943 I10 [id number] Lawson Escobedo [facility] ([facility]) [address] [place] [address] 5 01/25/2025 14:09:45 01/30/2025 15:43:21 Vascular dementia without behavioral disturbance 4887137516 2690147 F01.50 Anxiety 11331705 F41.9 Essential hypertension 02309416 I10 [id number] Lawson Escobedo [facility] ([facility]) [address] [address] 5 02/08/2025 12:11:22 02/13/2025 10:29:30 Recurrent falls 244361359 R29.6 9532937 Essential hypertension 88713111 I10 Vascular d ementia without behavioral disturbance 9655692819 5624594 F01.50 [id number] Lawson Escobedo [facility] ([facility]) [address] [place] [address] 5 02/19/2025 09:55:29 02/21/2025 09:00:34 Vascular dementia without behavioral disturbance 2493473617 0862510 F01.50 Anxiety 42304936 F41.9 Essential hypertension 36379703 I10 Health Concerns Section Related Observation LastModified by Organization Detai ls LastModified Time None Recorded Concern Status LastModified by Organization Details LastModified Time None Recorded Advance Directives Directive None Recorded Payers Insurance Date Sequence Insurance Name Policy Number Policy Garcia Covered Member ID Garcia Member ID Guarantor Name 02/08/2025 1 [place] Becky L Knight [id number] Becky L Knight 02/08/2025 [place] - [facility] (MEDICARE) Becky L Knight [id number] Becky L Knight 02/19/[address] [facility] ([facility]) [id number] Terrance Knight [id number] Becky Knight Notes Date Note Type Note Provider Name and Address Organization Details Recorded Time 10/30/2024 text/html Hypertension IM/FMReported by PatientHPIFor quality, patient reportshere for check-up. For severity, patient reportsnormal (<120/<80 mmhg)andmoderate. For duration, patient reportshtn present for ___ years. For alleviating factors, patient reportsmedication.RO S as noted in the HPI staff reports anxiety and aggressiveness towards has decreased. Lawson Escobedo DO [address] [place] [address], [phone], [facility] 10/31/2024 15:24:20 12/21/2024 text/html Hypertension IM/FMReported by PatientHPIFor quality, patient reportshere for check-up. For severity, patient reportsnormal (<120/<80 mmhg)andmoderate. For duration, patient reportshtn present for ___ years. For alleviating factors, patient reportsmedication.RO S as noted in the HPI no complaints per staff or patient. Lawson Escobedo DO [address] [place] [address], [phone], [facility] 01/02/2025 18:10:36 01/25/2025 text/html Hypertension IM/FMReported by PatientHPIFor quality, patient reportshere for check-up. For severity, patient reportsnormal (<120/<80 mmhg)andmoderate. For duration, patient reportshtn present for ___ years. For alleviating factors, patient reportsmedication.RO S as noted in the HPI no complaints per staff or patient. Lawson Escobedo DO [address] [place] [address], [phone], [facility] 01/28/2025 13:53:41 02/08/2025 text/html Hypertension IM/FMReported by PatientHPIFor quality, patient reportshere for check-up. For severity, patient reportsnormal (<120/<80 mmhg)andmoderate. For duration, patient reportshtn present for ___ years. For alleviating factors, patient reportsmedication.RO S as noted in the HPI staff reports frequent falls. Lawson Escobedo DO [address] [place] [address], [phone], [facility], LJocelyn. 02/12/2025 12:14:35 02/19/2025 text/html Hypertension IM/FMReported by PatientHPIFor quality, patient reportshere for check-up. For severity, patient reportsnormal (<120/<80 mmhg)andmoderate. For duration, patient reportshtn present for ___ years. For alleviating factors, patient reportsmedication.RO S as noted in the HPI no complaints per staff or patient. Lawson Escobedo DO [address] [place] [address], [phone], [facility], LTerrenceLTerrenceC. 02/20/2025 15:34:24 OBGyn Episode No OBEpisode recorded.
[2025-03-28 15:35] LABS: Hematocrit 41.2 % (36-47); Hemoglobin 13.70 g/dL (11.27-16.99); Mean Corpuscular HGB Conc 33.3 g/dL (30-55); Mean Corpuscular Hemoglobin 28.1 pg (27-33); Mean Corpuscular Volume 84.4 fl (85-98); Nucleated Red Blood Cells % 0 %; Platelet Count 169 10^3/cmm (157-399); Red Blood Count 4.88 10^6/uL (3.85-5.65); White Blood Count 7.15 10^3/uL (3.29-11.43)
[2025-03-28 15:43] LABS: Alanine Aminotransferase 14 U/L (0-33); Albumin Level 4.6 g/dL (3.5-5.2); Alkaline Phosphatase 107 U/L (35-105); Anion Gap 16.6 (5-19); Aspartate Amino Transferase 27 U/L (0-32); Blood Urea Nitrogen 26 mg/dL (8-23); Calcium 9.4 mg/dL (8.5-10.5); Carbon Dioxide 26 mmol/L (22-29); Chloride 100 mmol/L (98-107); Creatinine Clr Calc Pharmacy 41.4675; Globulin 3.0 g/dL (1.3-4.6); Glucose 97 mg/dL (65-115); Osmolality Calculated 293 mOsm/kg (285-295); Potassium 3.6 mmol/L (3.5-5.1); Sodium 139 mmol/L (136-145); Total Protein 7.6 g/dL (6.6-8.7)
--- NOTE | 2025-03-28 15:44 | PC.PHAR ---
Pt is a resident at [facility]
[2025-03-28] MEDS: lidocaine-epi 1% 20 mL INJ INJECTION (16:08)
[2025-03-28] MEDS: tetanus-dipt-pertussis 0.5 mL SDV IM (16:08)
[2025-03-28 16:15] VITALS: BP 198/99; PULSE 79; RESP 18; O2SAT 96
[2025-03-28 16:31] VITALS: BP 186/113; PULSE 76; O2SAT 96
--- NOTE | 2025-03-28 16:32 | ECG_ITS ---
[facility] Test Date: 2025-03-28 Pat Name: Becky Knight Department: Room: Gender: Female Closing Specialist: : 1940 Requested By: Ramon Kang Order Number: [id number] Agusto MD: Hardeep Blood M.D. Measurements Intervals [place] Rate: 87 P: 65 SD: 164 QRS: 15 QRSD: 86 T: 61 QT: 395 QTc: 477 Interpretive Statements SINUS RHYTHM MILD ST DEPRESSION Compared to ECG 05/27/2024 18:23:15 NO SIGNIFICANT CHANGE Electronically Signed On 03-29-2025 19:46:38 CDT by Hardeep Blood M.D. [email or web address]
--- NOTE | 2025-03-28 17:21 | PC.NURSE ---
Dr. White requested that I assist with helping the patient and her son find her glasses. They were unsure if she had worn them in when she arrived by ambulance. I looked around the room and was unable to locate. I told the son that I was going to review on camera and see if she was wearing them upon arrival. I was able to see from the ambulance bay camera that the patient was not wearing glasses upon arrival. ER UC was notified of findings and she stated that she would let the primary nurse know.
== END 2025-03-28 17:20 | disposition home or self-care (01) ==
PROVIDERS: Emergency Provider Family Medicine
DX: S09.8XXA Other specified injuries of head, initial encounter (principal); S01.01XA Laceration without foreign body of scalp, initial encounter; Z79.82 Long term (current) use of aspirin; W19.XXXA Unspecified fall, initial encounter
CPT/HCPCS: 12001; 36415; 70450; 72125; 80053; 85025; 90471; 90715; 93005; 99284; J9999